=== PATIENT | female | born 1945 | race Caucasian/White ===

== ENCOUNTER → 2019-03-04 15:01 | Outpatient (BNVA) | payer MEDICARE, SELFPAY | PROVIDERS: Family Provider Family Medicine; PCP Family Medicine; Visit Provider Specialist | DX: G31.84 Mild cognitive impairment of uncertain or unknown etiology (principal); F32.9 Major depressive disorder, single episode, unspecified; Z87.891 Personal history of nicotine dependence | CPT/HCPCS: 96116; 99214 ==

== ENCOUNTER → 2019-07-17 10:37 | Outpatient (BNVA) | payer MEDICARE, SELFPAY | PROVIDERS: Family Provider Family Medicine; PCP Family Medicine; Visit Provider Family Medicine | DX: F32.9 Major depressive disorder, single episode, unspecified (principal); I10 Essential (primary) hypertension | CPT/HCPCS: 80048 ==

== ENCOUNTER 2019-08-20 21:03 | Emergency (ER) | payer MEDICARE, SELFPAY ==
[2019-08-20 21:11] VITALS: BP 140/69; PULSE 62; RESP 18; TEMP 36; O2SAT 95; BMI 23.0
--- NOTE | 2019-08-20 21:35 | CTR_ITS ---
PROCEDURE INFORMATION: Exam: CT Thoracic Spine Without Contrast Exam date and time: 08/20/2019 9:38 PM Age: 74 years old Clinical indication: Injury or trauma; Fall; Initial encounter; Blunt trauma (contusions or hematomas) TECHNIQUE: Imaging protocol: Computed tomography images of the thoracic spine without contrast. Radiation optimization: All CT scans at this facility use at least one of these dose optimization techniques: automated exposure control; mA and/or kV adjustment per patient size (includes targeted exams where dose is matched to clinical indication); or iterative reconstruction. COMPARISON: No relevant prior studies available. RADIATION DOSE METRICS: Total DLP (mGy-cm): 678.47 FINDINGS: Vertebrae: T12 vertebral body compression fracture with retropulsion of bony fragments resulting in mild spinal canal narrowing T1-T2: No significant disc protrusion. No severe spinal canal stenosis. No significant neural foraminal narrowing. T2-T3: No significant disc protrusion. No severe spinal canal stenosis. No significant neural foraminal narrowing. T3-T4: No significant disc protrusion. No severe spinal canal stenosis. No significant neural foraminal narrowing. T4-T5: No significant disc protrusion. No severe spinal canal stenosis. No significant neural foraminal narrowing. T5-T6: No significant disc protrusion. No severe spinal canal stenosis. No significant neural foraminal narrowing. T6-T7: No significant disc protrusion. No severe spinal canal stenosis. No significant neural foraminal narrowing. T7-T8: No significant disc protrusion. No severe spinal canal stenosis. No significant neural foraminal narrowing. T8-T9: No significant disc protrusion. No severe spinal canal stenosis. No significant neural foraminal narrowing. T9-T10: No significant disc protrusion. No severe spinal canal stenosis. No significant neural foraminal narrowing. T10-T11: No significant disc protrusion. No severe spinal canal stenosis. No significant neural foraminal narrowing. T11-T12: No significant disc protrusion. No severe spinal canal stenosis. No significant neural foraminal narrowing. T12-L1: No significant disc protrusion. No severe spinal canal stenosis. No significant neural foraminal narrowing. CT/CT thoracic spin wo con* [id number] IMPRESSION: T12 vertebral body compression fracture with retropulsion of bony fragments resulting in mild spinal canal narrowing Radiation Dose CTDIVOL = (mGy): DLP = 678.47 (mGy-cm)
--- NOTE | 2019-08-20 21:35 | CTR_ITS ---
PROCEDURE INFORMATION: Exam: CT Lumbar Spine Without Contrast Exam date and time: 08/20/2019 9:38 PM Age: 74 years old Clinical indication: Injury or trauma; Fall; Initial encounter; Blunt trauma (contusions or hematomas) TECHNIQUE: Imaging protocol: Computed tomography images of the lumbar spine without contrast. Radiation optimization: All CT scans at this facility use at least one of these dose optimization techniques: automated exposure control; mA and/or kV adjustment per patient size (includes targeted exams where dose is matched to clinical indication); or iterative reconstruction. COMPARISON: No relevant prior studies available. RADIATION DOSE METRICS: Total DLP (mGy-cm): 1692.95 FINDINGS: Vertebrae: T12 vertebral body compression fracture with mild retropulsion of bony fragments and mild spinal canal narrowing. L1-L2: No significant disc protrusion. No severe spinal canal stenosis. No significant neural foraminal narrowing. L2-L3: No significant disc protrusion. No spinal canal stenosis. No neural foraminal narrowing. L3-L4: No significant disc protrusion. No severe spinal canal stenosis. No significant neural foraminal narrowing. L4-L5: No significant disc protrusion. No severe spinal canal stenosis. No significant neural foraminal narrowing. L5-S1: No significant disc protrusion. No severe spinal canal stenosis. No significant neural foraminal narrowing. Sacrum/coccyx: Right sacral chronic appearing insufficiency fracture. Stomach and bowel: Diverticulosis without diverticulitis. Soft tissues: Right cyst incompletely visualized. CT/CT lumbar spine wo con* [id number] IMPRESSION: 1. T12 vertebral body compression fracture with mild retropulsion of bony fragments and mild spinal canal narrowing. 2. Diverticulosis without diverticulitis. 3. Right cyst incompletely visualized. 4. Right sacral chronic appearing insufficiency fracture. Radiation Dose CTDIVOL = (mGy): DLP = 1692.95 (mGy-cm)
--- NOTE | 2019-08-20 22:08 | XRR_ITS ---
PROCEDURE INFORMATION: Exam: XR Pelvis Exam date and time: 08/20/2019 10:31 PM Age: 74 years old Clinical indication: Injury or trauma; Fall; Initial encounter; Blunt trauma (contusions or hematomas); Does not apply; Pelvic region; Additional info: Injury, fall, pelvic/back pain TECHNIQUE: Imaging protocol: XR pelvis. Views: 1 or 2 view. COMPARISON: No relevant prior studies available. FINDINGS: Bones/joints: osseous structures of the pelvis without an acute process. rami are intact. Sacroiliac joints without separation/diastases/fracture. Iliac bones unremarkable/noncontributory Degenerative changes within the hips: Mild Degenerative changes within the visualized portions of the caudal aspect of the lumbar spine. Mild degenerative changes about the symphysis. Soft tissues: Unremarkable. XR/XR pelvis 1-2V* [id number] IMPRESSION: No acute process. Degenerative changes.
--- NOTE | 2019-08-20 22:11 | ED_ITS ---
HPI - Fall General: Chief Complaint: Fall Stated Complaint: fall, back pain Time Seen by Provider: 08/20/19 22:04 Source: patient Mode of arrival: ambulatory Limitations: no limitations History of Present Illness: HPI Narrative: 74-year-old female that states she is carrying her dog and fell backwards and landed on her buttocks. Patient states she has had severe lower back pain since then. She has been able to ambulate but states that it is painful. She denies any other injuries at this time. She denies hitting her head. Patient rates pain a 7 out of 10. Denies any extremity pain MD complaint: fall Associated symptoms-after fall: Denies abdominal pain, chest pain, headache(s) o r neck pain Review of Systems Const: Denies: fever(s), chills, body aches or change in appetite Eyes: Denies: blurry vision or eye discomfort ENMT: Denies: throat pain or dental pain Card: Denies: chest pain Resp: Denies: dyspnea GI: Denies: abdominal pain, nausea, vomiting or diarrhea : Denies: dysuria Musc: Reports: back pain; Denies: neck pain Skin/Breast: Denies: rash Neuro: Denies: headache(s) Psych: Denies: depression Rock/Lymph: Denies: easy bruising All/Imm: Denies: urticaria PFSH ED PFSH: Medical History Hx of breast cancer Hypertension Surgical History H/O hysterectomy for benign disease History of cholecystectomy History of mastectomy Social History Smoking and tobacco status: former smoker Alcohol intake: never Physical Exam Const: COMMON NORMALS: no acute distress, patient oriented x3 and healthy appearing HENMT: COMMON NORMALS: normocephalic and atraumatic HEAD & SCALP: normocephalic and atraumatic Eye: COMMON NORMALS: Equal, round and reactive pupils present and EOMs intact bilaterally PUPIL: Yes Equal, round and reactive pupils present Neck/C-Spine: COMMON NORMALS: full ROM and supple Chest: COMMONS NORMALS: normal inspection of the chest and normal palpation of entire chest wall Resp: COMMON NORMALS: normal respiratory effort, No retractions, No use of accessory muscles and clear to auscultation bilaterally AUSCULTATION: clear to auscultation bilaterally Cardio: COMMON NORMALS: regular rate, regular rhythm and No murmurs present (Cardio) RATE: regular rate RHYTHM: regular rhythm GI: COMMON NORMALS: Normal to inspection, nondistended, normoactive bowel sounds present, Soft to palpation, non-tender and no masses PALPATION: Yes Soft to palpation Back/Pelvis: OTHER: Tenderness over low back Extremity: COMMON NORMALS: normal to inspection and full ROM Neuro: COMMON NORMALS: patient oriented x3, moves all extremities and no focal motor deficits Psych: COMMON NORMALS: mental status grossly normal, Normal thought process present and cooperative THOUGHT PROCESS: Normal thought process present Skin: COMMON NORMALS: no rashes or lesions noted and no wounds GENERAL SKIN EXAM: no rashes or lesions noted Course Vital Signs: Vital signs: Vital Signs Temperature 96.8 F L 08/20/19 21:11 Pulse Rate 62 08/20/19 22:42 Respiratory Rate 18 08/20/19 22:42 Blood Pressure 152/74 08/20/19 22:42 Pulse Oximetry 93 08/20/19 22:42 MDM - Fall MDM Narrative: Medical decision making narrative: Patient presents here after a fall and does have a thoracic spine fracture. She has no neurologic deficits and is able to ambulate. Patient placed in a TLSO brace and she is to follow-up with Dr. Fuentes. She has no signs of hip fracture. Patient is stable for discharge is return if worsening. She had no head injury. Imaging Data^: ct t spine: Attestation: I personally reviewed and interpreted this imaging study as fabiana rodriguez: Radiologist's impression: [address] [address] [address] Scan Report Signed Patient: Celestina San Unit #: [id number] : 1945 Age/Sex: 74 / F ADM Date: 08/20/19 Loc: ER Room/Bed: Attending Dr: Ordering Provider/Ordering MD: Jasmyne Beyer MD Date of Service: 08/20/19 Procedure(s): CT thoracic spin wo con* [id number] Accession Number(s): [id number] Report Number: [id number] PROCEDURE INFORMATION: Exam: CT Thoracic Spine Without Contrast Exam date and time: 08/20/2019 9:38 PM Age: 74 years old Clinical indication: Injury or trauma; Fall; Initial encounter; Blunt trauma (contusions or hematomas) TECHNIQUE: Imaging protocol: Computed tomography images of the thoracic spine without contrast. Radiation optimization: All CT scans at this facility use at least one of these dose optimization techniques: automated exposure control; mA and/or kV adjustment per patient size (includes targeted exams where dose is matched to clinical indication); or iterative reconstruction. COMPARISON: No relevant prior studies available. RADIATION DOSE METRICS: Total DLP (mGy-cm): 678.47 FINDINGS: Vertebrae: T12 vertebral body compression fracture with retropulsion of bony fragments resulting in mild spinal canal narrowing T1-T2: No significant disc protrusion. No severe spinal canal stenosis. No significant neural foraminal narrowing. T2-T3: No significant disc protrusion. No severe spinal canal stenosis. No significant neural foraminal narrowing. T3-T4: No significant disc protrusion. No severe spinal canal stenosis. No significant neural foraminal narrowing. T4-T5: No significant disc protrusion. No severe spinal canal stenosis. No significant neural foraminal narrowing. T5-T6: No significant disc protrusion. No severe spinal canal stenosis. No significant neural foraminal narrowing. T6-T7: No significant disc protrusion. No severe spinal canal stenosis. No significant neural foraminal narrowing. T7-T8: No significant disc protrusion. No severe spinal canal stenosis. No significant neural foraminal narrowing. T8-T9: No significant disc protrusion. No severe spinal canal stenosis. No significant neural foraminal narrowing. T9-T10: No significant disc protrusion. No severe spinal canal stenosis. No significant neural foraminal narrowing. T10-T11: No significant disc protrusion. No severe spinal canal stenosis. No significant neural foraminal narrowing. T11-T12: No significant disc protrusion. No severe spinal canal stenosis. No significant neural foraminal narrowing. T12-L1: No significant disc protrusion. No severe spinal canal stenosis. No significant neural foraminal narrowing. CT/CT thoracic spin wo con* [id number] IMPRESSION: T12 vertebral body compression fracture with retropulsion of bony fragments resulting in mild spinal canal narrowing ct l spine: Radiologist's impression: [facility] [address] [place] [address] CT Scan Report Signed Patient: Celestina San Unit #: [id number] : 1945 Age/Sex: 74 / F ADM Date: 08/20/19 Loc: ER Room/Bed: Attending Dr: Ordering Provider/Ordering MD: Jasmyne Beyer MD Date of Service: 08/20/19 Procedure(s): CT lumbar spine wo con* [id number] Accession Number(s): [id number] Report Number: [id number] PROCEDURE INFORMATION: Exam: CT Lumbar Spine Without Contrast Exam date and time: 08/20/2019 9:38 PM Age: 74 years old Clinical indication: Injury or trauma; Fall; Initial encounter; Blunt trauma (contusions or hematomas) TECHNIQUE: Imaging protocol: Computed tomography images of the lumbar spine without contrast. Radiation optimization: All CT scans at this facility use at least one of these dose optimization techniques: automated exposure control; mA and/or kV adjustment per patient size (includes targeted exams where dose is matched to clinical indication); or iterative reconstruction. COMPARISON: No relevant prior studies available. RADIATION DOSE METRICS: Total DLP (mGy-cm): 1692.95 FINDINGS: Vertebrae: T12 vertebral body compression fracture with mild retropulsion of bony fragments and mild spinal canal narrowing. L1-L2: No significant disc protrusion. No severe spinal canal stenosis. No significant neural foraminal narrowing. L2-L3: No significant disc protrusion. No spinal canal stenosis. No neural foraminal narrowing. L3-L4: No significant disc protrusion. No severe spinal canal stenosis. No significant neural foraminal narrowing. L4-L5: No significant disc protrusion. No severe spinal canal stenosis. No significant neural foraminal narrowing. L5-S1: No significant disc protrusion. No severe spinal canal stenosis. No significant neural foraminal narrowing. Sacrum/coccyx: Right sacral chronic appearing insufficiency fracture. Stomach and bowel: Diverticulosis without diverticulitis. Soft tissues: Right cyst incompletely visualized. CT/CT lumbar spine wo con* [id number] IMPRESSION: 1. T12 vertebral body compression fracture with mild retropulsion of bony fragments and mild spinal canal narrowing. 2. Diverticulosis without diverticulitis. 3. Right cyst incompletely visualized. 4. Right sacral chronic appearing insufficiency fracture. Radiation Dose CTDIVOL = (mGy): DLP = 1692.95 ( Discharge Plan Discharge Patient Disposition: Home, Self-Care Clinical Impression: Compression fracture Condition: Stable Prescriptions: [place] 5-325 mg tablet 1 tab PO Q6H PRN (Reason: pain) Qty: 14 RF: 0 ondansetron 4 mg tablet,disintegrating 4 mg PO Q6H PRN (Reason: nausea and vomiting) Qty: 14 RF: 0 No Action vitamin E (dl, acetate) 1,000 unit capsule 1,000 unit PO ONCE RF: 0 ergocalciferol (vitamin D2) [Vitamin D2] 50,000 unit capsule 50,000 unit PO .COMPLEX RF: 0 metoclopramide HCl [Reglan] 5 mg tablet 5 mg PO BID RF: 0 touysdqicdqq-Rd-xlbn-minerals Tablet PO ONCE RF: 0 cyanocobalamin (vitamin B-12) 1,000 mcg capsule 1,000 mcg PO ONCE RF: 0 calcium carb and citrat-mag ox 200 mg calcium- 50 mg tablet PO ONCE RF: 0 aspirin 81 mg tablet,delayed release (DR/EC) 81 mg PO ONCE RF: 0 naproxen sodium 220 mg capsule 220 mg PO ONCE PRNRF: 0 magnesium hydroxide [Milk of Magnesia] 400 mg/5 mL suspension 5 ml PO ONCE RF: 0 memantine [Namenda Titration Christopher] 5-10 mg tablets,dose pack See Rx Instructions PO PER PKG DIR RF: 0 memantine [Namenda] 10 mg tablet 10 mg PO BID RF: 0 bupropion HCl 150 mg tablet sustained-release 12 hr 150 mg PO BID 30 Days Qty: 60 RF: 2 venlafaxine 100 mg tablet 100 mg PO BID 30 Days Qty: 60 RF: 5 metoprolol tartrate 25 mg tablet 25 mg PO BID 90 Days Qty: 180 RF: 1 donepezil [Aricept] 10 mg tablet 10 mg PO DAILY Qty: 90 RF: 1 Discharge Orders: Discharge Order (Routine); Ordered 08/20/19 Ordered By: Jasmyne Beyer Referrals: Tadeo Fuentes MD [Physician] - 1-3 days Sneha Mendoza MD [Primary Care Provider] - Discharge Diet: Advance as tolerated Discharge Activity: Resume usual activity Patient Instructions: Thoracolumbar Fracture (ED) Coding Level of Care Code ED [facility] Fwd Exam Comprehensive
[2019-08-20 22:38] VITALS: RESP 18; O2SAT 96
[2019-08-20] MEDS: ondansetron 2 mg/ML SDV 2 mL 4 MG IVP (22:38)
[2019-08-20] MEDS: morphine 4 mg/mL SDV 1 mL IVP (22:38)
[2019-08-20 22:42] VITALS: BP 152/74; PULSE 62; RESP 18; O2SAT 93
[2019-08-20 23:12] VITALS: BP 161/76; PULSE 64; RESP 18; O2SAT 93
[2019-08-21 00:09] VITALS: RESP 18; O2SAT 95
[2019-08-21] MEDS: morphine 4 mg/mL SDV 1 mL IVP (00:09)
[2019-08-21] MEDS: HYDROcodone-acetaminophen 5-325 mg Tablet 1 TAB PO (00:38)
[2019-08-21 00:39] VITALS: BP 153/70; PULSE 68; RESP 16; O2SAT 92
--- NOTE | 2019-08-21 10:28 | DCPLANNER ---
commercial sales manager had message to schedule a follow up appointment for patient with Dr. Fuentes. commercial sales manager called [facility], spoke with Danielle, gave clinic patients information. commercial sales manager was told that patients information would be printed and reviewed. Clinic will call patient with appointment information.
--- NOTE | 2019-08-22 08:53 | DCPLANNER ---
Luis Angel from Dr. Alaniz office, called [facility] stating that a follow up appointment is scheduled for Tuesday, August 27, 2019 at 9:00 with Nadja. Clinic will call patient with appointment information.
--- NOTE | 2019-08-28 10:58 | DCPLANNER ---
Patient did attend appointment scheduled for 08.27.[address] Fuentes.
== END 2019-08-21 00:44 | disposition home or self-care (01) ==
PROVIDERS: Emergency Provider Emergency Medicine; PCP Family Medicine
DX: S22.080A Wedge compression fracture of T11-T12 vertebra, initial encounter for closed fracture (principal); Z79.82 Long term (current) use of aspirin; I10 Essential (primary) hypertension; Z85.3 Personal history of malignant neoplasm of breast; Z87.891 Personal history of nicotine dependence; W19.XXXA Unspecified fall, initial encounter
CPT/HCPCS: 12345; 72128; 72131; 72170; 96374; 96375; 96376; 99283; J2270; J2405

== ENCOUNTER 2019-09-01 | Outpatient (RCR) | payer MEDICARE, SELFPAY | END 2019-09-01 23:00 | disposition home or self-care (01) | LOC: MPT | PROVIDERS: Family Provider Family Medicine; PCP Family Medicine; Referring Provider Family Medicine; Visit Provider Family Medicine | DX: R41.9 Unspecified symptoms and signs involving cognitive functions and awareness (principal); G30.9 Alzheimer's disease, unspecified; F02.80 Dementia in other diseases classified elsewhere, unspecified severity, without behavioral disturbance, psychotic disturbance, mood disturbance, and anxiety | CPT/HCPCS: 99213; 99214 ==

== ENCOUNTER 2019-09-19 08:42 | Outpatient (CLI) | payer MEDICARE, SELFPAY ==
--- NOTE | 2019-09-19 09:00 | CT_ITS ---
WS: [id number] CT THORACIC SPINE TECHNIQUE: Noncontrast CT of the thoracic spine with coronal and sagittal reformatted images. CLINICAL INFORMATION: Fracture COMPARISON: CT August 20, 2019 DLP: 971.[address] scans at [facility] use at least one of these dose optimization techniques: automat ed exposure control; mA and/or kV adjustment per patient size (includes targeted exams where dose is matched to clinical indication); or iterative reconstruction. FINDINGS: Mild thoracic curve. Mild thoracic kyphosis. Again seen is compression fracture of the T12 vertebral body which is progressed today measuring approximately 50% centrally with biconcave compression. Retr opulsion posterior superior cortex with mild central canal stenosis. Fracture cleft in the superior e ndplate. Mild bilateral foraminal narrowing. Mild bilateral T11-T12 foraminal narrowing. No other significant changes. CT/CT thoracic spin wo con* [id number] IMPRESSION: 1. Again seen is compression fracture T12 vertebral body which is progressed t spike with biconcave compression measuring approximately 50%. 2. Mild retropulsion posterior superior cortex with mild central canal stenosi s has progressed. 3. No other significant changes.
== END 2019-09-19 08:43 | disposition home or self-care (01) ==
LOC: RADWPI 08:46
PROVIDERS: Family Provider Family Medicine; PCP Family Medicine; Visit Provider Licensed Practical Nurse
DX: S22.080A Wedge compression fracture of T11-T12 vertebra, initial encounter for closed fracture (principal); X58.XXXA Exposure to other specified factors, initial encounter
CPT/HCPCS: 72128

== ENCOUNTER 2019-09-24 15:01 | Outpatient (CLI) | payer MEDICARE, SELFPAY ==
--- NOTE | 2019-09-24 15:37 | MR_ITS ---
WS: [id number] MRI LUMBAR SPINE NONCONTRAST HISTORY: AGE RELATED OSTEOPOROSIS, CURRENT PATHOLOGICAL FRACTURE COMPARISON: CT lumbar spine 08/20/2019 TECHNIQUE: Sagittal and axial multisequence imaging is submitted. Moderate increase in thoracic kyphosis. Burst fracture at T12 was described on 08/20/2019. Posterior r etropulsion of the superior endplate by 5.2 mm. Mild contact upon the distal cord at the T12 level. Mild increase in the lumbar lordosis. Mild disc desiccation. No lumbar spine fracture. Conus terminates normally at L1-2 disc level. T11-T12: There is continued increased T2 signal within the T12 burst fracture. Anterior wedging has p rogressed from 16 mm to 6 mm. Retropulsion of the vertebral body has also slightly increased. There i s mild contact of the posterior vertebral body fragment on the conus. No associated marrow edema. Mil d encroachment into the subarticular recesses bilaterally and moderate narrowing of the foramina bila terally. Although incompletely imaged there is abnormal signal in the LEFT pedicle or articular facet of T11 v ertebral body which may represent edema from the fracture of the recent fall. Metastatic lesion is no t excluded with a history of breast cancer. L1-L2: Normal. L2-L3: Mild asymmetric disc bulging to the RIGHT. There is mild bulging disc contact on the L3 RIGHT nerve root in the subarticular recess. Small amount of fluid in the facet joints. L3-L4: Diffuse annular disc bulging and osteophytic ridging. Contact on the L4 nerve roots bilaterall y, slightly greater on the RIGHT. Small amount of fluid in the facet joints. L4-L5: Mild annular disc bulging. Annular fissure in the LEFT foramen. There is mild flattening and c ontact of the nerve roots bilaterally within the subarticular recesses. Small amount of fluid in the facet joints. No stenosis. L5-S1: Mild broad-based disc bulging posteriorly without stenosis. Bilateral renal cysts. MR/MR lumbar spine wo con* [id number] IMPRESSION: 1. Burst fracture T12 with 5.2 mm retropulsion of the vertebral body and mild contact on the conus. Fracture has progressed since 08/20/2019. 2. Moderate bilateral foraminal narrowing at T11-12 and narrowing of the subar ticular recesses due to the burst fracture. 3. No additional lumbar spine fracture. 4. Degenerative disc disease and disc bulging as above. Resulting in multileve l areas of mild subarticular foraminal stenosis. No high-grade stenosis in the lumbar spine. 5. Abnormal signal in the LEFT T11 pedicle or facet joint is incompletely visu alized. May be related to the recent trauma and related to marrow edema. Cannot exclude metastatic lesion. For further evaluation MRI thoracic spine with and without contrast may be helpful. No abnormality was noted on the CT of 0.
--- NOTE | 2019-09-24 15:37 | XR_ITS ---
WS: [id number] DEXA (DUAL ENERGY X-RAY ABSORPTIOMETRY) Bone mineral density was performed using a [employer] machine. HISTORY: AGE RELATED OSTEOPOROSIS, CURRENT PATHOLOGICAL FRACTURE VERT COMPARISON: None available. Lumbar spine BMD (L1-L4): 0.848 g/cm2 T score: -2.8 Z score: -0.7 Total hip BMD: Left: 0.727 g/cm2. T score: -2.2 Z score: -0.3 Right: 0.733 g/cm2. T score: -2.2 Z score: -0.3 10 year probability of a major osteoporotic fracture is 18%. XR/XR DEXA axial skeleton* [id number] IMPRESSION: OSTEOPOROSIS based upon the WHO classification for females.
== END 2019-09-24 15:02 | disposition home or self-care (01) ==
PROVIDERS: Family Provider Family Medicine; PCP Family Medicine; Visit Provider Neurological Surgery
DX: M80.08XA Age-related osteoporosis with current pathological fracture, vertebra(e), initial encounter for fracture; S22.081A Stable burst fracture of T11-T12 vertebra, initial encounter for closed fracture; X58.XXXA Exposure to other specified factors, initial encounter; M48.04 Spinal stenosis, thoracic region; M51.36 Other intervertebral disc degeneration, lumbar region; M51.26 Other intervertebral disc displacement, lumbar region
CPT/HCPCS: 72148; 77080

== ENCOUNTER 2019-10-20 12:48 | Outpatient (CLI) | payer MEDICARE, SELFPAY ==
--- NOTE | 2019-10-20 13:00 | CT_ITS ---
WS: [id number] CT THORACIC SPINE HISTORY: Fracture TECHNIQUE: Contiguous 2.5 mm axial images are reviewed to thoracic spine. Images are reformatted in s agittal and coronal planes. All CT scans at [facility] use at least one of these dose opt imization techniques: automated exposure control; mA and/or kV adjustment per patient size (includes targeted exams where dose is matched to clinical indication); or iterative reconstruction. DLP: 921.08 mGycm COMPARISON: 09/19/2019 Mild increase in thoracic kyphosis. Burst fracture of T12 is reidentified. There is involvement of th e posterior vertebral body with retropulsion by 5.3 mm of the posterior superior vertebral body with encroachment upon the ventral thecal sac and subarticular recesses. There is continued progressive lo ss of height with no change in the retropulsion. Mild deformity of the ventral thecal sac at the T12 level with subarticular recess stenosis. Mild bilateral foraminal narrowing at T11-12 as before. Very mild anterior wedging of T3, T6 and T7. No other interval change. CT/CT thoracic spin wo con* [id number] IMPRESSION: 1. Mild progression of the burst fracture at T12 with 5.3 mm retropulsion of t he posterior superior endplate. 2. Mild central and subarticular recess stenosis at the T12 level due to the f racture. 3. Mild narrowing of the T11-12 foramina.
== END 2019-10-20 12:49 | disposition home or self-care (01) ==
PROVIDERS: Family Provider Family Medicine; PCP Family Medicine; Visit Provider Licensed Practical Nurse
DX: S22.080A Wedge compression fracture of T11-T12 vertebra, initial encounter for closed fracture (principal); X58.XXXA Exposure to other specified factors, initial encounter; M48.04 Spinal stenosis, thoracic region
CPT/HCPCS: 72128

== ENCOUNTER → 2019-10-22 15:36 | Outpatient (BNVA) | payer MEDICARE, SELFPAY | PROVIDERS: Family Provider Family Medicine; PCP Family Medicine; Visit Provider Licensed Practical Nurse | DX: S22.080D Wedge compression fracture of T11-T12 vertebra, subsequent encounter for fracture with routine healing (principal); X58.XXXD Exposure to other specified factors, subsequent encounter | CPT/HCPCS: 99213 ==

== ENCOUNTER 2019-11-24 08:56 | Outpatient (CLI) | payer MEDICARE, SELFPAY ==
--- NOTE | 2019-11-24 09:12 | CT_ITS ---
WS: [id number] CT THORACIC SPINE TECHNIQUE: Noncontrast CT of the thoracic spine with coronal and sagittal reformatted images. CLINICAL INFORMATION: Fracture COMPARISON: CT October 20, 2019 September 19, 2019. DLP: 946.[address] scans at [facility] use at least one of these dose optimization techniques: automat ed exposure control; mA and/or kV adjustment per patient size (includes targeted exams where dose is matched to clinical indication); or iterative reconstruction. FINDINGS: Mild thoracic curve. Mild thoracic kyphosis. Again seen is the compression fracture T12 vertebral bod y. Slight progressive compression since the prior examination measuring approximately 80% centrally w ith biconcave compression. Mild retropulsion of the posterior superior cortex with mild to moderate c entral canal stenosis. Narrowing of the subarticular recess bilaterally. Mild bilateral T11-T12 celena inal narrowing. Mild anterior wedging T3, T6, T7 unchanged. CT/CT thoracic spin wo con* [id number] IMPRESSION: 1. Mild progression of the biconcave compression fracture at T12 with fracture clefts. Loss of approximately 80% vertebral body height centrally. 2. Stable retropulsion posterior superior cortex measuring 5.3 mm unchanged wi th mild to moderate central canal stenosis. 3. Mild bilateral T11 and T12 foraminal narrowing.
== END 2019-11-24 08:57 | disposition home or self-care (01) ==
LOC: CT 09:00 → WPI 09:11
PROVIDERS: Family Provider Family Medicine; PCP Family Medicine; Visit Provider Licensed Practical Nurse
DX: S22.080A Wedge compression fracture of T11-T12 vertebra, initial encounter for closed fracture (principal); X58.XXXA Exposure to other specified factors, initial encounter
CPT/HCPCS: 72128; 99214

== ENCOUNTER 2020-02-25 20:44 | Emergency (ER) | payer MEDICARE, SELFPAY ==
[2020-02-25 20:52] VITALS: BP 145/55; PULSE 73; RESP 16; TEMP 38.1; O2SAT 95; BMI 22.6
[2020-02-25 21:02] VITALS: O2SAT 97
--- NOTE | 2020-02-25 21:14 | XR_ITS ---
WS: [id number] Exam: XR chest 1V portable [id number] Date/Time of Exam: 02/25/2020 9:14 PM Reason For Exam: dyspnea/ covid sx Comparison 04/25/2018. The lungs are fully expanded. No infiltrates. No pleural effusion. Cardiomediastinal structures are u nremarkable. Surgical clips along the left rib cage. The left breast may be surgically absent. XR/XR chest 1V portable [id number] IMPRESSION: 1. No acute cardiopulmonary finding.
--- NOTE | 2020-02-25 21:17 | ECG_ITS ---
[facility] Test Date: 2020-02-25 Pat Name: Celestina San Department: Room: Gender: Female Skin Installer: : 1945 Requested By: Baldo Nolasco Order Number: [id number] Lovell MD: Isatu Carvajal M.D. Measurements Intervals [place] Rate: 68 P: -23 TN: 131 QRS: -28 QRSD: 86 T: 11 QT: 396 QTc: 423 Interpretive Statements SINUS RHYTHM BORDERLINE LEFT AXIS DEVIATION [QRS AXIS < -20] POSSIBLE RIGHT VENTRICULAR CONDUCTION DELAY [RSR (QR) IN V1/V2] Compared to ECG 04/25/2018 19:41:18 Incomplete right bundle-branch block no longer present ST (T wave) deviation no longer present Electronically Signed On 02-26-2020 9:22:23 LAND RECLAMATION SPECIALIST by Isatu Carvajal M.D. [id number]
--- NOTE | 2020-02-25 21:18 | W.ED.COVID ---
HPI - COVID General: Chief Complaint: COVID symptoms Stated Complaint: AMS Time Seen by Provider: 02/25/20 20:58 Triage information: Has fever, cough or shortness of breath. Exposure to COVID + person last 14 days History of Present Illness: HPI Narrative: The patient is a 75-year-old female who comes to the ER complaining of shortness of breath, loss of smell and taste, muscle aches, nausea, and occasional diarrhea for the past 3 days. 10 days ago she sat next to someone at [employer] that was diagnosed as positive yesterday and she is here for testing. Temperature is 100.5 in the ER. She also admits fever chills and sweats at home MD complaint: has COVID symptoms Prior covid testing: no COVID 19 common symptoms: positive fever(s), chills, non-productive cough, dyspnea, fatigue, body aches, headache(s), loss of sense of smell and/or taste, nausea and diarrhea; negative throat pain or nasal congestion COVID 19 other sytmptoms: negative chest pressure, chest pain, requiring oxygen or respiratory distress Severity: mild COVID Results: SARS-CoV-2 Antigen (Rapid) Positive (Negative) H 02/25/20 21:40 02/25/20 Review of Systems General: Reports: 10 or more systems reviewed and unremarkable except in HPI and below Const: Reports: fever(s), chills, body aches and fatigue Eyes: Denies: change in vision, blurry vision or eye redness ENMT: Denies: throat pain, swelling of lips/tongue, ear or mastoid pain or nasal congestion Card: Denies: chest pain, palpitations, irregular heart rhythm, edema, dyspnea on exertion or orthopnea Resp: Reports: dyspnea and non-productive cough GI: Reports: nausea and diarrhea : Denies: flank pain, difficulty voiding, urinary frequency or urinary urgency Musc: Denies: neck pain, back pain, extremity pain, joint pain, joint redness, limited range of motion or muscle weakness Skin/Breast: Denies: rash, pruritus, erythema, skin pain or skin tenderness Neuro: Reports: headache(s) Psych: Denies: anxiety or depression Endo: Denies: polyuria All/Imm: Denies: urticaria, throat swelling or tongue swelling PFSH ED PFSH: Medical History (Updated 11/28/19 @ 11:08 by Snehal Ocasio APRN) Chronic insomnia Compression fracture of T12 vertebra Hx of breast cancer Hypertension Osteoporosis Surgical History H/O hysterectomy for benign disease History of cholecystectomy History of mastectomy Family History Father Cancer Grandmother Diabetes Sister Cancer Mother Aneurysm Social History Smoking and tobacco status: former smoker Alcohol intake: never Household members: spouse Marital status: Current occupational status: retired History of recent travel: No Physical Exam Narrative: EXAM NARRATIVE: febrile. Const: COMMON NORMALS: no acute distress, average body habitus, patient oriented x3, no limitations, healthy appearing, alert and well nourished GENERAL APPEARANCE: cooperative, comfortable, well kempt and well developed ORIENTATION/CONSCIOUSNESS: Yes awake, Yes oriented to person, Yes oriented to place and Yes oriented to time HENMT: COMMON NORMALS: normocephalic, external ears normal and Normal external nose present HEAD & SCALP: normal to inspection and normocephalic NOSE: Normal external nose present EXTERNAL EAR: Yes external ears normal MOUTH: Normal oral and palatal mucosa present THROAT: posterior oropharynx normal Eye: COMMON NORMALS: Equal, round and reactive pupils present and EOMs intact bilaterally GENERAL EYE: appearance normal, both eyes and all related structures PUPIL: Yes Equal, round and reactive pupils present Neck/C-Spine: COMMON NORMALS: full ROM, no lymphadenopathy, no meningeal signs and no JVD GENERAL: Yes normal visual inspection Lymph: LYMPHATIC: no lymphadenopathy noted Chest: COMMONS NORMALS: normal inspection of the chest and normal palpation of entire chest wall Resp: COMMON NORMALS: normal respiratory effort, No retractions, No use of accessory muscles, clear to auscultation bilaterally and percussion normal EFFORT & INSPECTION: Yes able to speak in complete sentences AUSCULTATION: clear to auscultation bilaterally PERCUSSION: percussion normal Cardio: COMMON NORMALS: no JVD, regular rate, regular rhythm, S1 normal heart sound present, S2 normal heart sound present and Peripheral pulses 2+ throughout RATE: regular rate RHYTHM: regular rhythm HEART SOUNDS: S1 normal heart sound present and S2 normal heart sound present PERIPHERAL PULSES: Peripheral pulses 2+ throughout GI: COMMON NORMALS: Normal to inspection, nondistended, normoactive bowel sounds present, Soft to palpation, non-tender and no masses INSPECTION: Yes normal to inspection PALPATION: Yes Soft to palpation : COMMON NORMALS: Yes no CVA tenderness BLADDER/KIDNEY EXAM: Yes no CVA tenderness Back/Pelvis: COMMON NORMALS: no CVA tenderness, thoracic and lumbar spine normal to inspection, no thoracic nor lumbar tenderness and thoraco-lumbar ROM normal Extremity: COMMON NORMALS: normal to inspection, full ROM, capillary refill normal, no joint enlargement and no pedal edema GENERAL: Yes normal exam except as noted Neuro: COMMON NORMALS: patient oriented x3, CN's II-XII intact bilaterally, moves all extremities, no focal motor deficits, no sensory deficits noted and gait normal SENSORIUM/ORIENTATION: Yes alert, Yes oriented to person, Yes oriented to place and Yes oriented to time MENINGEAL SIGNS: Yes no meningeal signs Psych: COMMON NORMALS: mental status grossly normal, Normal thought process present, cooperative, normal affect and speech normal APPEARANCE: Yes well kempt ATTITUDE: Yes calm SPEECH: Yes normal speech THOUGHT PROCESS: Normal thought process present Skin: COMMON NORMALS: no rashes or lesions noted GENERAL SKIN EXAM: no rashes or lesions noted Course Vital Signs: Vital signs: Vital Signs Temperature 98.9 F 02/26/20 03:00 Pulse Rate 74 02/26/20 03:01 Respiratory Rate 18 02/26/20 03:01 Blood Pressure 126/66 02/26/20 03:01 Pulse Oximetry 96 02/26/20 03:01 MDM - COVID MDM Narrative: Medical decision making narrative: The patient came to the ER with Covid symptoms and known exposure to a Covid patient. She swabs positive for Covid. She was given Tylenol, IV fluids and her fever reduced. She will will be given BAM infusion and discharged after. She is alert and oriented x4 and denies significant weakness. She says she is eating and drinking well, and can take care of herself at home. She is alert and oriented x4 Lab Data: Labs: Lab Results 02/25/20 02/25/20 02/25/20 Range/Units 21:05 21:05 21:05 WBC 6.2 (4.0-10.0) 10^3/ uL RBC 3.78 L (4.1-5.3) 10^6/u L Hgb 11.5 (11.5-15.3) g/dL Hct 35.5 L (37.0-47.0) % MCV 93.9 (81-99) fL MCH 30.4 (28.0-34.0) pg MCHC 32.4 (30.0-36.0) g/dL RDW 13.4 (12.1-15.1) % Plt Count 175 (130-400) 10^3/c mm MPV 11.7 H (7.4-10.4) fL Neut % (Auto) 77.7 % Lymph % (Auto) 10.9 % Evangeline % (Auto) 10.1 % Eos % (Auto) 0.0 % Baso % (Auto) 0.2 % Neut # (Auto) 4.85 (1.8-7.7) 10^3/u L Lymph # (Auto) 0.7 L (0.8-4.8) 10^3/u L Evangeline # (Auto) 0.6 (0.2-0.9) 10^3/u L Eos # (Auto) 0.0 (0.0-0.8) 10^3/u L Baso # (Auto) 0.0 (0.0-0.1) 10^3/u L Nucleated RBC % (a uto) 0 % Nucleated RBCs # 0.0 /100WBC Sodium 134 L (136-145) mmol/L Potassium 4.8 (3.5-5.1) mmol/L Chloride 95 L (98-107) mmol/L Carbon Dioxide 30 H (22-29) mmol/L Anion Gap 13.8 (5-19) BUN 39 H (8-23) mg/dL Creatinine 1.1 H (0.5-0.9) mg/dL GFR Calculation Not Reportable Glucose 96 (65-115) mg/dL Calculated Osmolal ity 287 (285-295) mOsm/k g Lactate (0.5-2.2) mmol/L Calcium 8.8 (8.5-10.5) mg/dL Total Bilirubin 0.2 (0.15-1.2) mg/dL AST 26 (0-32) U/L ALT 22 (0-33) U/L Alkaline Phosphata se 80 (35-105) IU/L Troponin T Baselin e 20 H (0-10) ng/L Total Protein 6.5 L (6.6-8.7) g/dL Albumin 3.9 (3.5-5.2) g/dL Globulin 2.6 (1.3-4.6) g/dL Urine Color (Yellow) Urine Appearance (CLEAR) Urine pH (5-7) Ur Specific Gravit y (1.005-1.030) Urine Protein (Negative) Urine Glucose (UA) (Normal) Urine Ketones (Negative) Urine Blood (Negative) Urine Nitrate (Negative) Urine Bilirubin (Negative) Urine Urobilinogen (Negative) mg/dL Ur Leukocyte Christi ase (Negative) SARS-CoV-2 Ag (Rap id) (Negative) 02/25/20 02/25/20 02/26/20 Range/Units 21:40 22:30 01:40 WBC (4.0-10.0) 10^3/ uL RBC (4.1-5.3) 10^6/u L Hgb (11.5-15.3) g/dL Hct (37.0-47.0) % MCV (81-99) fL MCH (28.0-34.0) pg MCHC (30.0-36.0) g/dL RDW (12.1-15.1) % Plt Count (130-400) 10^3/c mm MPV (7.4-10.4) fL Neut % (Auto) % Lymph % (Auto) % Evangeline % (Auto) % Eos % (Auto) % Baso % (Auto) % Neut # (Auto) (1.8-7.7) 10^3/u L Lymph # (Auto) (0.8-4.8) 10^3/u L Evangeline # (Auto) (0.2-0.9) 10^3/u L Eos # (Auto) (0.0-0.8) 10^3/u L Baso # (Auto) (0.0-0.1) 10^3/u L Nucleated RBC % (a uto) % Nucleated RBCs # /100WBC Sodium (136-145) mmol/L Potassium (3.5-5.1) mmol/L Chloride (98-107) mmol/L Carbon Dioxide (22-29) mmol/L Anion Gap (5-19) BUN (8-23) mg/dL Creatinine (0.5-0.9) mg/dL GFR Calculation Glucose (65-115) mg/dL Calculated Osmolal ity (285-295) mOsm/k g Lactate 0.7 (0.5-2.2) mmol/L Calcium (8.5-10.5) mg/dL Total Bilirubin (0.15-1.2) mg/dL AST (0-32) U/L ALT (0-33) U/L Alkaline Phosphata se (35-105) IU/L Troponin T Baselin e (0-10) ng/L Total Protein (6.6-8.7) g/dL Albumin (3.5-5.2) g/dL Globulin (1.3-4.6) g/dL Urine Color Yellow (Yellow) Urine Appearance Clear (CLEAR) Urine pH 6.0 (5-7) Ur Specific Gravit y 1.005 (1.005-1.030) Urine Protein Neg (Negative) Urine Glucose (UA) Norm (Normal) Urine Ketones Negative (Negative) Urine Blood Neg (Negative) Urine Nitrate Negative (Negative) Urine Bilirubin Neg (Negative) Urine Urobilinogen Norm (Negative) mg/dL Ur Leukocyte Christi ase Negative (Negative) SARS-CoV-2 Ag (Rap id) Positive H (Negative) COVID Results: SARS-CoV-2 Antigen (Rapid) Positive (Negative) H 02/25/20 21:40 02/25/20 Discharge Plan Discharge Patient Disposition: Home Condition: Stable Prescriptions: New Medrol (Christopher) 4 mg tablets,dose pack See Rx Instructions PO .COMPLEX Qty: 21 RF: 0 No Action Mclean 5-325 mg tablet 1 tab PO Q8H PRN (Reason: pain) 7 Days Qty: 21 RF: 0 vitamin E (dl, acetate) 1,000 unit capsule 1,000 unit PO ONCE RF: 0 ergocalciferol (vitamin D2) [Vitamin D2] 50,000 unit capsule 50,000 unit PO .COMPLEX RF: 0 ktlujrocxmqs-Fr-oqyp-minerals Tablet PO ONCE RF: 0 cyanocobalamin (vitamin B-12) 1,000 mcg capsule 1,000 mcg PO ONCE RF: 0 calcium carb and citrat-mag ox 200 mg calcium- 50 mg tablet PO ONCE RF: 0 aspirin 81 mg tablet,delayed release (DR/EC) 81 mg PO ONCE RF: 0 magnesium hydroxide [Milk of Magnesia] 400 mg/5 mL suspension 5 ml PO ONCE RF: 0 vitamins A,C,Z-cwza-qawbpk 7,160-113-100 lfux-fa-lgew tablet 2 tab PO BID RF: 0 ibuprofen [IBU-200] 200 mg tablet 200 mg PO Q6H PRNRF: 0 memantine [Namenda] 10 mg tablet 10 mg PO BID Qty: 180 RF: 1 donepezil [Aricept] 10 mg tablet 10 mg PO DAILY Qty: 90 RF: 1 metoclopramide HCl [Reglan] 5 mg tablet 5 mg PO BID Qty: 60 RF: 2 ondansetron 4 mg tablet,disintegrating 4 mg PO Q6H PRN (Reason: nausea and vomiting) Qty: 14 RF: 0 Discharge Orders: Discharge ED (Routine); Ordered 02/25/20 Ordered By: Baldo Nolasco Referrals: Sneha Mendoza MD [Primary Care Provider] - Discharge Diet: Advance as tolerated Discharge Activity: Resume usual activity Patient Instructions: Upper Respiratory Infection (ED) Activity Restrictions/Additional Instructions: You have tested positive for coronavirus. Please take the azithromycin and steroid pack as directed and return to the ER if your symptoms should worsen. Follow-up with your primary care physician in a few days to monitor improvement of your symptoms. It is recommended that you self quarantine at home avoid contact with others. Wash hands frequently and wear a mask if possible at home to prevent the spread of it in the air. Coding Level of Care Code ED Bulk Plant Supervisor for Bernabe Fwd Exam Comprehensive
[2020-02-25 21:27] LABS: Basophils % 0.2 %; Hematocrit 35.5 % (37.0-47.0); Hemoglobin 11.5 g/dL (11.5-15.3); Lymphocytes # 0.7 10^3/uL (0.8-4.8); Lymphocytes % 10.9 %; Mean Corpuscular HGB Conc 32.4 g/dL (30.0-36.0); Mean Corpuscular Hemoglobin 30.4 pg (28.0-34.0); Mean Corpuscular Volume 93.9 fL (81-99); Mean Platelet Volume 11.7 fL (7.4-10.4); Monocytes # 0.6 10^3/uL (0.2-0.9); Monocytes % 10.1 %; Neutrophils # 4.85 10^3/uL (1.8-7.7); Neutrophils % 77.7 %; Nucleated Red Blood Cells % 0 %; Platelet Count 175 10^3/cmm (130-400); Red Blood Count 3.78 10^6/uL (4.1-5.3); Red Cell Distribution Width 13.4 % (12.1-15.1); White Blood Count 6.2 10^3/uL (4.0-10.0)
[2020-02-25 21:38] LABS: Alanine Aminotransferase 22 U/L (0-33); Albumin Level 3.9 g/dL (3.5-5.2); Alkaline Phosphatase 80 IU/L (35-105); Anion Gap 13.8 (5-19); Aspartate Amino Transferase 26 U/L (0-32); Blood Urea Nitrogen 39 mg/dL (8-23); Calcium 8.8 mg/dL (8.5-10.5); Carbon Dioxide 30 mmol/L (22-29); Chloride 95 mmol/L (98-107); Globulin 2.6 g/dL (1.3-4.6); Glucose 96 mg/dL (65-115); Osmolality Calculated 287 mOsm/kg (285-295); Potassium 4.8 mmol/L (3.5-5.1); Sodium 134 mmol/L (136-145); Total Bilirubin 0.2 mg/dL (0.15-1.2); Total Protein 6.5 g/dL (6.6-8.7)
[2020-02-25 21:41] LABS: Troponin(5th) Baseline 20 ng/L (0-10)
[2020-02-25] MEDS: sodium chloride 0.9% 1,000 ML 999 ML IV (22:14)
[2020-02-25] MEDS: acetaminophen 500 mg Tablet 1000 MG PO (22:15)
[2020-02-25] MEDS: ondansetron 2 mg/ML SDV 2 mL 4 MG IVP (22:15)
[2020-02-25 22:38] LABS: SARS Covid-2 Antigen Positive (Negative)
[2020-02-25 22:51] LABS: Lactate (Lactic Acid level) 0.7 mmol/L (0.5-2.2)
--- NOTE | 2020-02-25 23:11 | PC.NURSE ---
Per Dr Nolasco, pt's daughter has concerns with pt's mental status and ability to care for elderly spouse with severe COPD. Pt's daughter wishes to speak with pt prior to BAM adm. Pt shows no sign of AMS, able to answer questions correctly
[2020-02-25 23:57] VITALS: BP 124/57; RESP 20; O2SAT 96
[2020-02-26] VITALS (8 sets, daily range): BP systolic 116–127; BP diastolic 56–66; PULSE 61–74; RESP 18–23; TEMP 37.2; O2SAT 95–96
[2020-02-26 01:57] LABS: Add Urine Microscopic? NO
[2020-02-26 02:22] LABS: Bilirubin Urine Neg (Negative); Blood Urine Neg (Negative); Glucose Urine UA Norm (Normal); Ketones Urine Negative (Negative); Leukocyte Esterase Urine Negative (Negative); Nitrate Urine Negative (Negative); Protein Urine Neg (Negative); Specific Gravity, Urine 1.005 (1.005-1.030); Urine Appearance Clear (CLEAR); Urine Color Yellow (Yellow); Urobilinogen Urine Norm (Negative)
[2020-02-26] MEDS: azithromycin 250 mg Tablet 500 MG PO (03:00)
[2020-02-26] MEDS: dexamethasone 4 mg/mL INJ 10 MG IVP (03:00)
--- NOTE | 2020-02-26 04:12 | PC.NURSE ---
i have reviewed this chart
== END 2020-02-26 04:13 | disposition home or self-care (01) ==
PROVIDERS: Emergency Provider Family Medicine; PCP Family Medicine
DX: U07.1 COVID-19 (principal); Z79.82 Long term (current) use of aspirin; Z85.3 Personal history of malignant neoplasm of breast; I10 Essential (primary) hypertension; Z87.891 Personal history of nicotine dependence
CPT/HCPCS: 12345; 36415; 71045; 80053; 81003; 83605; 84484; 85025; 87426; 93005; 96365; 96375; 99283; 99284; J1100; J2405; J7030; J7050; Q0144

== ENCOUNTER → 2020-03-10 11:47 | Outpatient (BNVA) | payer MEDICARE, SELFPAY | PROVIDERS: PCP Family Medicine; Visit Provider Specialist | DX: G30.1 Alzheimer's disease with late onset (principal); F02.80 Dementia in other diseases classified elsewhere, unspecified severity, without behavioral disturbance, psychotic disturbance, mood disturbance, and anxiety; F33.1 Major depressive disorder, recurrent, moderate; Z87.891 Personal history of nicotine dependence | CPT/HCPCS: 99213; 99214 ==

== ENCOUNTER → 2020-06-24 15:52 | Outpatient (BNVA) | payer MEDICARE, SELFPAY | PROVIDERS: PCP Family Medicine; Visit Provider Family Medicine | DX: K29.70 Gastritis, unspecified, without bleeding (principal); R11.0 Nausea; K59.00 Constipation, unspecified; K29.00 Acute gastritis without bleeding; K59.04 Chronic idiopathic constipation | CPT/HCPCS: 80053; 83690; 85025 ==

== ENCOUNTER → 2020-08-06 10:07 | Outpatient (BNVA) | payer MEDICARE, SELFPAY | PROVIDERS: PCP Family Medicine; Visit Provider Surgery | DX: Z20.822 Contact with and (suspected) exposure to COVID-19 (principal) | CPT/HCPCS: 87635 ==

== ENCOUNTER 2020-08-11 08:01 | Day surgery (SDC) | payer MEDICARE, SELFPAY ==
--- NOTE | 2020-08-11 08:20 | ANES.PREANE2 ---
Pre-Anesthetic Assessment Pre-Anesthetic Assessment: Height/Weight: Height 1.55 m Weight 55.338 kg Proposed Procedure: Operation Date: 08/11/20 09:30 Proposed Procedures p EGD [id number] r10.9 k59.04 k29.00(Not Applicable) - James Herrera MD s Colonoscopy(Not Applicable) - James Herrera MD Was Beta Dulce Maria taken within 24 hours: N/A Social: Social History: No alcohol and No tobacco Exam: Pre-Anes Outpt Exam: alert, oriented x 3, clear to auscultation bilaterally and regular rate & rhythm Airway: Submandibular: WNL Cervical ROM: WNL MP: 2 Dentition: False CV/HEM: CV/HEM: HTN GI: GI: GERD Neuropsych: Neuropsych: Dementia and Depression Comments: Alzheimer's Anesthetic Plan: ASA status: 3 Anesthesia: MAC Risk of > 500 ml blood loss (7ml/kg in children): No PFSH Anesthesia PFSH: Medical History Chronic insomnia Compression fracture of T12 vertebra Constipation Hx of breast cancer Hypertension Osteoporosis Surgical History H/O hysterectomy for benign disease History of cholecystectomy History of mastectomy Family History Father Cancer Grandmother Diabetes Sister Cancer Mother Aneurysm Social History Smoking and tobacco status: former smoker Alcohol intake: never Household members: spouse Marital status: Current occupational status: retired History of recent travel: No Female Reproductive History: Spontaneous abortions: No Data Anesthesia Cardiac Studies: No Data to Display
[2020-08-11 08:35] VITALS: BP 133/63; PULSE 65; RESP 18; TEMP 36.2; O2SAT 100
[2020-08-11] MEDS: sodium chloride 0.9% 1,000 ML 30 ML IV (08:56)
--- NOTE | 2020-08-11 10:13 | W.PM.OPSUD ---
Surgery/Procedure H&P Update DATE OF PROCEDURE: August 11, 2020 DATE H&P PERFORMED: 07/15/20 H&P UPDATE INFORMATION: I have reviewed H&P completed within last 30 days, I have examined patient prior to procedure and No changes to prior documentation PREOP DIAGNOSIS: ABDOMINAL PAIN PRIMARY INDICATION FOR PROCEDURE: The same PLANNED PROCEDURE: Operation Date: 08/11/20 09:30 Proposed Procedures p EGD [id number] r10.9 k59.04 k29.00(Not Applicable) - James Herrera MD s Colonoscopy(Not Applicable) - James Herrera MD
[2020-08-11 10:45] VITALS: BP 100/78; PULSE 67; RESP 18; TEMP 36.8; O2SAT 99
[2020-08-11 11:00] VITALS: BP 110/43; PULSE 66; RESP 16; TEMP 36.7; O2SAT 98
--- NOTE | 2020-08-11 13:58 | ANE.PACU2 ---
Inpatient post-anesthesia follow up: Airway intact: Yes Vital signs: Temperature 98.0 F Pulse Rate 66 Respiratory Rate 16 Blood Pressure 110/43 Pulse Oximetry 98 Oxygen Delivery Me thod Room Air Oxygen Flow Rate Fraction of Inspir ed Oxygen Hydration adequate: Yes Nausea and vomiting: No Pain level: 1 Mental status: Baseline
[2020-08-12 06:30] LABS: H. Pylori / CLO Test Negative
== END 2020-08-11 11:25 | disposition home or self-care (01) ==
PROVIDERS: PCP Family Medicine; Visit Provider Surgery
PROC: 0DJ08ZZ Inspection of Upper Intestinal Tract, Via Natural or Artificial Opening Endoscopic (ICD-10-PCS; CPT 43235; principal; 2020-08-11 09:30)
PROC: 0DJD8ZZ Inspection of Lower Intestinal Tract, Via Natural or Artificial Opening Endoscopic (ICD-10-PCS; CPT 45378; 2020-08-11 09:30)
DX: R10.9 Unspecified abdominal pain (principal); K57.30 Diverticulosis of large intestine without perforation or abscess without bleeding; K44.9 Diaphragmatic hernia without obstruction or gangrene; K29.70 Gastritis, unspecified, without bleeding; K29.80 Duodenitis without bleeding; I10 Essential (primary) hypertension; K21.9 Gastro-esophageal reflux disease without esophagitis; F03.90 Unspecified dementia, unspecified severity, without behavioral disturbance, psychotic disturbance, mood disturbance, and anxiety; F02.80 Dementia in other diseases classified elsewhere, unspecified severity, without behavioral disturbance, psychotic disturbance, mood disturbance, and anxiety; M81.0 Age-related osteoporosis without current pathological fracture; Z85.3 Personal history of malignant neoplasm of breast; Z87.891 Personal history of nicotine dependence
CPT/HCPCS: 43239; 45378; 87077; 96360; 96361; J2704; J7030

== ENCOUNTER 2020-12-17 09:23 | Outpatient (CLI) | payer MEDICARE, SELFPAY ==
--- NOTE | 2020-12-17 10:00 | NM_ITS ---
WS: [id number] NUCLEAR MEDICINE GASTRIC STUDY CLINICAL INFORMATION: K29.00 - Acute gastritis without bleeding TECHNIQUE: Following oral ingestion of cooked egg mixed with 1.09 mCi technetium 99m sulfur colloid, anterior images of the stomach were obtained over the course of 90 minutes. Activity curve was perfor med over the course of 90 minutes with linear regression analysis. COMPARISON: None. FINDINGS: Oral ingestion of sulfur colloid egg mixture. Only 44% gastric emptying at 120 minutes Gastric emptying at 1 hour only 22% Calculated T1/2 144 minutes MN/[place] [id number] IMPRESSION: Findings compatible with significantly delayed gastric emptying. *Normal median T1 half 90 minutes for solid egg meal (45-110 minutes). Delayed gastric retention is defined as 90% retained at 1 hour, 60% at 2 hour s, 30% at 3 hours, and 10% at 4 hours (normal percent gastric retention is 37-9 0% at 1 hour, 30-60% at 2 hours, and 0-10% at 4 hours).
== END 2020-12-17 09:24 | disposition home or self-care (01) ==
LOC: RAD 09:32
PROVIDERS: PCP Family Medicine; Visit Provider Surgery
DX: K29.00 Acute gastritis without bleeding (principal)
CPT/HCPCS: 78264; A9541

== ENCOUNTER → 2021-05-04 09:29 | Outpatient (BNVA) | payer MEDICARE, SELFPAY | PROVIDERS: PCP Family Medicine; Visit Provider Family Medicine | DX: R10.9 Unspecified abdominal pain | CPT/HCPCS: 80053; 83690; 85025 ==

== ENCOUNTER 2021-06-15 09:55 | Outpatient (CLI) | payer MEDICARE, SELFPAY ==
--- NOTE | 2021-06-15 10:00 | CT_ITS ---
WS: [id number] CT ABDOMEN TECHNIQUE: Noncontrast CT of the abdomen with coronal and sagittal reformatted images. CLINICAL INFORMATION: R10.13 - Epigastric pain COMPARISON: None. DLP: 372.[address] scans at [facility] use at least one of these dose optimization techniques: automated e xposure control; mA and/or kV adjustment per patient size (includes targeted exams where dose is matc hed to clinical indication); or iterative reconstruction. FINDINGS: Lung bases are well aerated. Cholecystectomy clips. Normal GE junction. Splenic granulomas. Noncontra st pancreas appears normal. RIGHT anterior renal cyst measuring 2.0 cm. No hydronephrosis in either k idney. Tiny fat-containing umbilical hernia. Aortic calcification. Normal visualized abdominal aorta. Chronic compression fracture T12 with 80-90% loss vertebral body height in the mid and anterior aspec t with preservation of the posterior cortex. Posterior cortex is preserved with mild retropulsion. Mi ld to moderate central canal stenosis at T12. Compression fracture has matured since November 23. CT/CT abdomen wo con [id number] IMPRESSION: 1. Prior cholecystectomy. 2. RIGHT renal cyst measuring 2.0 cm. 3. No hydronephrosis in either kidney. 4. Tiny fat-containing umbilical hernia. 5. Chronic compression fracture T12 vertebral body with retropulsion posterior superior cortex with mild to moderate central canal stenosis unchanged. 6. No other significant findings.
== END 2021-06-15 09:56 | disposition home or self-care (01) ==
PROVIDERS: PCP Family Medicine; Visit Provider Family Medicine
DX: R10.13 Epigastric pain (principal); Z90.49 Acquired absence of other specified parts of digestive tract; N28.1 Cyst of kidney, acquired; M48.54XA Collapsed vertebra, not elsewhere classified, thoracic region, initial encounter for fracture
CPT/HCPCS: 74150

== ENCOUNTER → 2021-11-30 14:36 | Outpatient (BNVA) | payer MEDICARE, SELFPAY | PROVIDERS: PCP Family Medicine; Visit Provider Nurse Practitioner Family | DX: M19.90 Unspecified osteoarthritis, unspecified site (principal) | CPT/HCPCS: 85651; 86140; 86160; 86162; 86235; 86255; 86376 ==

== ENCOUNTER → 2022-07-21 08:32 | Outpatient (BNVA) | payer MEDICARE, SELFPAY | PROVIDERS: PCP Family Medicine; Visit Provider Podiatrist Foot & Ankle Surgery | DX: M20.11 Hallux valgus (acquired), right foot (principal); M20.12 Hallux valgus (acquired), left foot; M20.41 Other hammer toe(s) (acquired), right foot; M20.42 Other hammer toe(s) (acquired), left foot; L84 Corns and callosities | CPT/HCPCS: 11055; 73630; 99203 ==

== ENCOUNTER → 2022-07-25 09:58 | Outpatient (BNVA) | payer MEDICARE, SELFPAY | PROVIDERS: PCP Family Medicine; Visit Provider Nurse Practitioner | DX: M81.0 Age-related osteoporosis without current pathological fracture (principal) | CPT/HCPCS: 82040; 82310 ==

== ENCOUNTER → 2022-09-18 15:26 | Outpatient (BNVA) | payer MEDICARE, SELFPAY | PROVIDERS: PCP Family Medicine; Visit Provider Internal Medicine | DX: D47.2 Monoclonal gammopathy (principal); D64.9 Anemia, unspecified; I10 Essential (primary) hypertension | CPT/HCPCS: 80053; 80061; 82232; 82728; 82784; 83010; 83550; 83615; 83883; 84155; 84165; 84550; 85025; 85045; 86146 ==

== ENCOUNTER → 2022-09-19 15:26 | Outpatient (BNVA) | payer MEDICARE, SELFPAY | PROVIDERS: PCP Family Medicine; Visit Provider Internal Medicine | DX: Z01.89 Encounter for other specified special examinations (principal) | CPT/HCPCS: 84155; 84165 ==

== ENCOUNTER → 2022-09-25 14:12 | Outpatient (BNVA) | payer MEDICARE, SELFPAY | PROVIDERS: PCP Family Medicine; Visit Provider Internal Medicine | DX: D64.9 Anemia, unspecified (principal) | CPT/HCPCS: 84156; 84166 ==

== ENCOUNTER 2022-10-14 16:20 | Emergency (ER) | payer MEDICARE, SELFPAY ==
[2022-10-14 16:48] VITALS: BP 137/70; PULSE 61; RESP 18; TEMP 36.9; O2SAT 97; BMI 20.8
[2022-10-14 17:47] LABS: Add Urine Microscopic? NO; Charge for UA Resulting for Rev
[2022-10-14 17:55] LABS: Urine Appearance Clear (CLEAR); Urine Color Dark Yellow (Yellow); pH Urine 7 (5-7)
[2022-10-14 17:56] LABS: Bilirubin Urine Neg (Negative); Blood Urine Neg (Negative); Glucose Urine UA Norm (Normal); Ketones Urine Negative (Negative); Leukocyte Esterase Urine Negative (Negative); Nitrate Urine Negative (Negative); Protein Urine Neg (Negative); Urobilinogen Urine Norm (Negative)
[2022-10-14 18:25] VITALS: BP 155/60; PULSE 65; RESP 16; O2SAT 96
[2022-10-14 18:25] LABS: Alanine Aminotransferase 18 U/L (0-33); Albumin Level 4.2 g/dL (3.5-5.2); Alkaline Phosphatase 54 U/L (35-105); Anion Gap 13.6 (5-19); Aspartate Amino Transferase 19 U/L (0-32); Blood Urea Nitrogen 33 mg/dL (8-23); Calcium 9.8 mg/dL (8.5-10.5); Carbon Dioxide 33 mmol/L (22-29); Chloride 99 mmol/L (98-107); Globulin 2.7 g/dL (1.3-4.6); Glucose 104 mg/dL (65-115); Osmolality Calculated 300 mOsm/kg (285-295); Potassium 4.6 mmol/L (3.5-5.1); Sodium 141 mmol/L (136-145); Total Bilirubin 0.2 mg/dL (0.15-1.2); Total Protein 6.9 g/dL (6.6-8.7)
[2022-10-14 18:30] VITALS: BP 142/68; PULSE 62; O2SAT 98
--- NOTE | 2022-10-14 19:06 | CTR_ITS ---
PROCEDURE INFORMATION: Exam: CT Head Without Contrast Exam date and time: 10/14/2022 7:33 PM Age: 77 years old Clinical indication: Injury or trauma; Blunt trauma (contusions or hematomas); Patient HX: Fall yesterday with head strike. ; Additional info: Fall yesterday, head injury TECHNIQUE: Imaging protocol: Computed tomography of the head without contrast. Radiation optimization: All CT scans at this facility use at least one of these dose optimization techniques: automated exposure control; mA and/or kV adjustment per patient size (includes targeted exams where dose is matched to clinical indication); or iterative reconstruction. REPORTING DATA: Count of CT and Cardiac NM exams in prior 12 months: This patient has received 0 known CTs and 0 known cardiac nuclear medicine studies in the 12 months prior to the current study. COMPARISON: CT head wo contrast 04/25/2018 7:18 PM RADIATION DOSE METRICS: Total DLP (mGy-cm): 279 FINDINGS: Brain: No acute intracranial hemorrhage, acute large territory infarct, or obvious mass lesion. Age appropriate diffuse cerebral volume loss. Mild chronic white matter changes, likely to be chronic small vessel ischemic changes. Cerebral ventricles: No ventriculomegaly. Paranasal sinuses: Visualized sinuses are unremarkable. No fluid levels. Mastoid air cells: Visualized mastoid air cells are well aerated. Bones/joints: Unremarkable. No acute fracture. Soft tissues: Unremarkable. CT/CT head wo con* [id number] IMPRESSION: No acute intracranial abnormality.
--- NOTE | 2022-10-14 19:06 | CTR_ITS ---
PROCEDURE INFORMATION: Exam: CT Abdomen And Pelvis With Contrast Exam date and time: 10/14/2022 7:37 PM Age: 77 years old Clinical indication: Abdominal pain; Prior surgery; Surgery date: 6+ months; Surgery type: Mastectomy. Gb. Hysterectomy. Patient HX: Epigastric pain with loss of appetite. ; Additional info: Epigastric abdominal pain TECHNIQUE: Imaging protocol: Computed tomography of the abdomen and pelvis with contrast. Radiation optimization: All CT scans at this facility use at least one of these dose optimization techniques: automated exposure control; mA and/or kV adjustment per patient size (includes targeted exams where dose is matched to clinical indication); or iterative reconstruction. Contrast material: OMNI 350; Contrast volume: 75 ml; Contrast route: INTRAVENOUS (IV); REPORTING DATA: Count of CT and Cardiac NM exams in prior 12 months: This patient has received 0 known CTs and 0 known cardiac nuclear medicine studies in the 12 months prior to the current study. COMPARISON: CT abdomen wo con [id number] 06/15/2021 10:28 AM RADIATION DOSE METRICS: Total DLP (mGy-cm): 312.45 FINDINGS: Liver: Normal. No mass. Gallbladder and bile ducts: Cholecystectomy. Pancreas: Cystic or mucinous lesion at pancreatic tail measuring 1.6 cm greatest dimension is unchanged. Spleen: Spleen shows calcified granulomatous change. Normal size. Adrenal glands: Normal. No mass. Kidneys and ureters: Bilateral renal cysts are likely benign. No hydronephrosis. Stomach and bowel: Colonic diverticula noted. No evident pericolic inflammatory change. No findings of abnormal bowel distention. Appendix: No evidence of appendicitis. Intraperitoneal space: Unremarkable. No free air. No significant fluid collection. Vasculature: Vascular calcifications are noted. No abdominal aortic aneurysm. Lymph nodes: Unremarkable. No enlarged lymph nodes. Urinary bladder: Unremarkable as visualized. Reproductive: Hysterectomy. Bones/joints: Marked chronic compression of T12 vertebral body. No acute bony findings. Soft tissues: Small fatty umbilical hernia. CT/CT abdomen pelvis w con* [id number] IMPRESSION: No acute findings. Stable cystic or mucinous lesion at pancreatic tail. Chronic marked compression of T12. Additional details as above. COMMENTS: Consistent with the [employer]'s Incidental Findings Committee white paper (J Am Lesly Radiol 2018): Any incidental renal lesion less than 1 cm or classified as too small to characterize, or any incidental cystic renal lesion characterized as simple-appearing, is likely benign. No follow-up imaging is recommended for these lesions per consensus recommendations based on imaging criteria.
[2022-10-14] MEDS: sodium chloride 0.9% 1,000 ML 999 ML IV (19:19)
[2022-10-14] MEDS: diphenhydrAMINE 50 mg/mL SDV 1mL 25 MG IVP (19:26)
[2022-10-14] MEDS: hydrocortisone 100 mg/2 mL SDV IVP (19:26)
[2022-10-14 19:37] LABS: Creatine Phosphokinase 98 U/L (26-192); Lipase 48 U/L (13-60); Thyroid Stimulating Hormone 1.55 uIU/mL (0.27-4.20)
[2022-10-14] MEDS: iohexol 350 mg/mL 500 mL Btl (per mL) IV (19:40)
[2022-10-14 19:59] VITALS: BP 166/84; PULSE 61; RESP 20; O2SAT 95
[2022-10-14 20:52] LABS: Basophils % 0.3 %; Hematocrit 35.3 % (37.0-47.0); Hemoglobin 11.2 g/dL (11.5-15.3); Lymphocytes # 1.2 10^3/uL (0.8-4.8); Lymphocytes % 16.2 %; Mean Corpuscular HGB Conc 31.7 g/dL (30.0-36.0); Mean Corpuscular Hemoglobin 29.8 pg (28.0-34.0); Mean Corpuscular Volume 93.9 fl (81-99); Mean Platelet Volume 11.1 fL (7.4-10.4); Monocytes # 0.8 10^3/uL (0.2-0.9); Monocytes % 11.6 %; Neutrophils # 5.06 10^3/uL (1.8-7.7); Neutrophils % 71.5 %; Nucleated Red Blood Cells % 0 %; Platelet Count 221 10^3/cmm (130-400); Red Blood Count 3.76 10^6/uL (4.1-5.3); Red Cell Distribution Width 13.2 % (12.1-15.1); White Blood Count 7.1 10^3/uL (4.0-10.0)
[2022-10-14 22:19] VITALS: BP 144/94; PULSE 66; RESP 16; O2SAT 96
[2022-10-14 23:10] VITALS: BP 140/90; PULSE 84; RESP 16; O2SAT 95
--- NOTE | 2022-10-14 23:43 | ED_ITS ---
HPI - General Adult General: Chief complaint: General Medical Stated complaint: physician sent, dehydration, nausea, weakness Time Seen by Provider: 10/14/22 18:16 History of Present Illness: 77-year-old female presenting with generalized weakness, and leg shakiness. Her legs gave out from under her yesterday at the pharmacy parking lot, and she fell, striking her head. She also complains of abdominal bloating, decreased appetite, epigastric pain after eating, and probable dehydration. Associated symptoms: Reports confusion (intermittent), headache(s) (after fall) and nausea; Deny chest pain, dyspnea, rash or vomiting Review of Systems Const: Denies: fever(s) Eyes: Denies: change in vision ENMT: Denies: throat pain Card: Denies: chest pain Resp: Denies: dyspnea, productive cough or non-productive cough GI: Reports: abdominal pain and nausea; Denies: vomiting or diarrhea Musc: Denies: neck pain Skin/Breast: Denies: rash Neuro: Reports: headache(s) (after fall) and confusion (intermittent) PFSH ED PFSH: Medical History (Updated 10/14/22 @ 22:39 by George Burroughs DO) Abdominal pain Chronic insomnia Compression fracture of T12 vertebra Constipation Diverticulosis Gastritis Seen on EGD. Hx of breast cancer Hypertension Insomnia Osteoporosis Psychiatric care Surgical History H/O hysterectomy for benign disease History of cholecystectomy History of colonoscopy (~09/2020) History of esophagogastroduodenoscopy (EGD) (~09/2020) History of mastectomy Family History Father Cancer Grandmother Diabetes Sister Cancer Mother Aneurysm Social History Smoking and tobacco status: never smoked Alcohol intake: never Substance/Drug Use: never Household members: spouse Marital status: Current occupational status: retired Female Reproductive History: Spontaneous abortions: No Physical Exam Const: COMMON NORMALS: no acute distress GENERAL APPEARANCE: cooperative and frail appearing; not ill appearing HENMT: COMMON NORMALS: normocephalic, atraumatic and Normal external nose p resent HEAD & SCALP: normocephalic and atraumatic FACE & SINUS: normal facial exam and face symmetric NOSE: Normal external nose present Eye: COMMON NORMALS: Equal, round and reactive pupils present and EOMs intact bilaterally PUPIL: Yes Equal, round and reactive pupils present Neck/C-Spine: GENERAL: Yes trachea midline Chest: CHEST: Yes Symmetrical chest wall rise Resp: COMMON NORMALS: normal respiratory effort, No retractions, No use of accessory muscles and clear to auscultation bilaterally AUSCULTATION: clear to auscultation bilaterally Cardio: COMMON NORMALS: regular rate and regular rhythm RATE: regular rate RHYTHM: regular rhythm GI: COMMON NORMALS: Normal to inspection, nondistended, normoactive bowel sounds present Extremity: NARRATIVE EXTREMITY EXAM: Significant weakness and tremor with hip flexion. Less so in the upper extremities. No significant pain with these maneuvers. No deformities. Neuro: INOCENTE COMA SCALE: document GCS findings Inocente coma scale eye opening: Spontaneous Inocente coma scale verbal response: Orientated [place] coma scale motor response: Obey commands Inocente coma scale total score: 15 SENSORY EXAM: Yes extremities (intact) Psych: COMMON NORMALS: speech normal SPEECH: Yes normal speech Skin: COMMON NORMALS: no rashes or lesions noted GENERAL SKIN EXAM: no rashes or lesions noted Course Vital Signs: Vital signs: Vital Signs Temperature 98.4 F 10/14/22 16:48 Pulse Rate 84 10/14/22 23:10 Respiratory Rate 16 10/14/22 23:10 Blood Pressure 140/90 10/14/22 23:10 Pulse Oximetry 95 10/14/22 23:10 Oxygen Delivery Me thod Room Air 10/14/22 22:19 [facility] - General Adult Medical Decision Making Vitals are essentially normal here. She is awake and alert. Hemoglobin is 11. White blood cell count is 7. Creatinine is 1.2. Head CT is negative. 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 Urinalysis is negative. She is given a liter bolus. She is walked in the ER, and is feeling improved. Less weakness. She still quite frail and weak. We have encouraged her to get a walker. Further outpatient work-up could include ankle-brachial indexes, physical therapy home eval, and potentially neurological referral, as she does have a significant tremor, Which can be associated with muscle weakness. TSH and CK are normal. Lab Data 10/14/22 17:54 10/14/22 17:54 Radiology Impressions Abdomen/Pelvis CT 10/14/22 19:06 IMPRESSION: No acute findings. Stable cystic or mucinous lesion at pancreatic tail. Chronic marked compression of T12. Additional details as above. COMMENTS: Consistent with the [employer]'s Incidental Findings Committee white paper (J Am Lesly Radiol 2018): Any incidental renal lesion less than 1 cm or classified as too small to characterize, or any incidental cystic renal lesion characterized as simple-appearing, is likely benign. No follow-up imaging is recommended for these lesions per consensus recommendations based on imaging criteria. Head CT 10/14/22 19:06 IMPRESSION: No acute intracranial abnormality. Laboratory Results WBC 7.1 10^3/uL (4.0-10.0) 10/14/22 17:54 RBC 3.76 10^6/uL (4.1-5.3) L 10/14/22 17:54 Hgb 11.2 g/dL (11.5-15.3) L 10/14/22 17:54 Hct 35.3 % (37.0-47.0) L 10/14/22 17:54 MCV 93.9 fl (81-99) 10/14/22 17:54 MCH 29.8 pg (28.0-34.0) 10/14/22 17:54 MCHC 31.7 g/dL (30.0-36.0) 10/14/22 17:54 RDW 13.2 % (12.1-15.1) 10/14/22 17:54 Plt Count 221 10^3/cmm (130-400) 10/14/22 17:54 MPV 11.1 fL (7.4-10.4) H 10/14/22 17:54 Neut % (Auto) 71.5 % 10/14/22 17:54 Lymph % (Auto) 16.2 % 10/14/22 17:54 Benson % (Auto) 11.6 % 10/14/22 17:54 Eos % (Auto) 0.0 % 10/14/22 17:54 Baso % (Auto) 0.3 % 10/14/22 17:54 Neut # (Auto) 5.06 10^3/uL (1.8-7.7) 10/14/22 17:54 Lymph # (Auto) 1.2 10^3/uL (0.8-4.8) 10/14/22 17:54 Benson # (Auto) 0.8 10^3/uL (0.2-0.9) 10/14/22 17:54 Eos # (Auto) 0.0 10^3/uL (0.0-0.8) 10/14/22 17:54 Baso # (Auto) 0.0 10^3/uL (0.0-0.1) 10/14/22 17:54 Nucleated RBC % (auto) 0 % 10/14/22 17:54 Nucleated RBCs # 0.0 /100WBC 10/14/22 17:54 Sodium 141 mmol/L (136-145) 10/14/22 17:54 Potassium 4.6 mmol/L (3.5-5.1) 10/14/22 17:54 Chloride 99 mmol/L (98-107) 10/14/22 17:54 Carbon Dioxide 33 mmol/L (22-29) H 10/14/22 17:54 Anion Gap 13.6 (5-19) 10/14/22 17:54 BUN 33 mg/dL (8-23) H 10/14/22 17:54 Creatinine 1.2 mg/dL (0.5-0.9) H 10/14/22 17:54 GFR Calculation Not Reportable 10/14/22 17:54 Glucose 104 mg/dL (65-115) 10/14/22 17:54 Calculated Osmolality 300 mOsm/kg (285-295) H 10/14/22 17:54 Calcium 9.8 mg/dL (8.5-10.5) 10/14/22 17:54 Total Bilirubin 0.2 mg/dL (0.15-1.2) 10/14/22 17:54 AST 19 U/L (0-32) 10/14/22 17:54 ALT 18 U/L (0-33) 10/14/22 17:54 Alkaline Phosphatase 54 U/L (35-105) 10/14/22 17:54 Creatine Kinase 98 U/L (26-192) 10/14/22 17:54 Total Protein 6.9 g/dL (6.6-8.7) 10/14/22 17:54 Albumin 4.2 g/dL (3.5-5.2) 10/14/22 17:54 Globulin 2.7 g/dL (1.3-4.6) 10/14/22 17:54 Lipase 48 U/L (13-60) 10/14/22 17:54 TSH 1.55 uIU/mL (0.27-4.20) 10/14/22 17:54 Urine Color Dark yellow (Yellow) 10/14/22 17:38 Urine Appearance Clear (CLEAR) 10/14/22 17:38 Urine pH 7 (5-7) 10/14/22 17:38 Ur Specific [place] 1.010 (1.005-1.030) 10/14/22 17:38 Urine Protein Neg (Negative) 10/14/22 17:38 Urine Glucose (UA) Norm (Normal) 10/14/22 17:38 Urine Ketones Negative (Negative) 10/14/22 17:38 Urine Blood Neg (Negative) 10/14/22 17:38 Urine Nitrate Negative (Negative) 10/14/22 17:38 Urine Bilirubin Neg (Negative) 10/14/22 17:38 Urine Urobilinogen Norm mg/dL (Negative) 10/14/22 17:38 Ur Leukocyte Esterase Negative (Negative) 10/14/22 17:38 Discharge Plan Discharge Patient Disposition: Home Clinical Impression: Weakness of both lower limbs Condition: Stable Prescriptions: No Action magnesium hydroxide [Milk of Magnesia] 400 mg/5 mL suspension 5 ml PO .at bedtime Qty: 355 5RF ergocalciferol (vitamin D2) [Vitamin D2] 50,000 unit capsule 50,000 unit PO .COMPLEX Rx Instructions: 50,000 units PO once tablet every 7 days; djcgbrhycnca-Co-yuje-minerals Tablet 1 tab PO ONCE cyanocobalamin (vitamin B-12) 1,000 mcg capsule 1,000 mcg PO ONCE calcium carb and citrat-mag ox 200 mg calcium- 50 mg tablet 1 tab PO ONCE vitamin E (dl, acetate) 450 mg (1,000 unit) capsule See Rx Instructions PO ONCE Rx Instructions: 100 mg PO once; sennosides-docusate sodium 8.6-50 mg tablet 1 tab-cap PO DAILY 30 Days Qty: 30 2RF ondansetron HCl 4 mg tablet 4 mg PO BID PRN (Reason: nausea and vomiting) 30 Days Qty: 60 5RF ibuprofen 400 mg tablet 400 mg PO Q8H PRN (Reason: pain) Qty: 60 0RF diclofenac sodium [Voltaren Arthritis Pain] 1 % gel 4 g topical QID Qty: 100 0RF Rx Instructions: apply to affected areas bupropion HCl 150 mg tablet sustained-release 12 hr 150 mg PO BID 90 Days Qty: 180 1RF trazodone 50 mg tablet 50 mg PO .at bedtime 90 Days Qty: 90 1RF polyethylene glycol 3350 [Miralax] 17 gram powder in packet 17 g PO DAILY 30 Days Qty: 30 2RF Rx Instructions: mix with 8 oz water or juice memantine [Namenda XR] 7 mg capsule,sprinkle,ER 24hr 7 mg PO DAILY Qty: 30 1RF venlafaxine 150 mg capsule,extended release 24hr 150 mg PO QAM Qty: 30 1RF alum-mag hydroxide-simeth [Maalox Maximum Strength] 400-400-40 mg/5 mL suspension 30 ml PO Q6H PRN (Reason: indigestion) Qty: 30 0RF donepezil 10 mg tablet See Rx Instructions .ROUTE .COMPLEX Qty: 90 0RF Dose Instruction: Take 1 tablet by mouth once daily for 90 days Rx Instructions: Take 1 tablet by mouth once daily for 90 days pantoprazole 40 mg tablet,delayed release (DR/EC) See Rx Instructions .ROUTE .COMPLEX Qty: 180 0RF Dose Instruction: Take 1 tablet by mouth twice daily for 90 days Rx Instructions: Take 1 tablet by mouth twice daily for 90 days hydroxyzine HCl 25 mg tablet See Rx Instructions .ROUTE .COMPLEX Qty: 30 0RF Dose Instruction: TAKE 1 TABLET BY MOUTH EVERY DAY AT BEDTIME NEEDED FOR INSOMNIA/ANXIETY Rx Instructions: TAKE 1 TABLET BY MOUTH EVERY DAY AT BEDTIME NEEDED FOR INSOMNIA/ANXIETY Discharge Orders: Discharge ED (Routine); Ordered 10/14/22 Ordered By: George Burroughs Referrals: Sneha Mendoza MD [Primary Care Provider] - 4-7 days Patient Instructions: Weakness (ED) Activity Restrictions/Additional Instructions: Return for any problems. Follow-up with your doctor next week. Orders have been written for home therapy evaluation. You should hear from them by midweek. Coding Level of Care Code ED Heel Buffer for Chg Dick
--- NOTE | 2022-10-16 09:45 | DCPLANNER ---
household manager had message to schedule in home PT eval for patient and a follow up appointment with Dr. Mendoza. Patient has a follow up appointment scheduled with Dr. Mendoza for 10.17.22, disease case manager rn called the clinic and let the clinic know that the ER physician wanted a in home PT eval and asked if patients primary care physician could order this to be done at clinic when patient is seen at her visit. household manager was told that it was added to patients notes for the visit tomorrow and they would discuss this with patient.
== END 2022-10-14 23:00 | disposition home or self-care (01) ==
PROVIDERS: Family Medicine; Emergency Provider Emergency Medicine; PCP Family Medicine
DX: M62.81 Muscle weakness (generalized) (principal)
CPT/HCPCS: 36415; 70450; 74177; 80048; 80053; 81003; 82550; 83690; 84443; 85025; 96374; 96375; 99285; J1200; J1720; J7030; Q9967

== ENCOUNTER → 2022-10-24 15:26 | Outpatient (BNVA) | payer MEDICARE, SELFPAY | PROVIDERS: Visit Provider Surgery | DX: R14.0 Abdominal distension (gaseous) (principal); K21.9 Gastro-esophageal reflux disease without esophagitis; Z12.11 Encounter for screening for malignant neoplasm of colon | CPT/HCPCS: 99203; 99214 ==

== ENCOUNTER 2022-10-26 10:14 | Outpatient (CLI) | payer MEDICARE, SELFPAY ==
--- NOTE | 2022-10-26 10:30 | USCV_ITS ---
Celestina San Age: 77 Gender: F : 1945 Exam Date: 10/26/2022 10:29 Ordering Phys: Sneha Mendoza MD Technologist: Alfonso Michael Exam Location[place] [facility] [place]: pad RIGHT LEFT Brachial 118.00 mmHg Brachial 123.00 mmHg Pressure (mmHg) Waveform Pressure (mmHg) Waveform 136.00 SCHOOL DIRECTOR 123.00 144.00 DPA 137.00 1.20 Ankle/Brachial Index 1.10 102.00 Pre-Exercise Toe Pressure 105.00 0.86 Pre-Exercise Toe/Brachial Index 0.89 FINDINGS Resting CINDY 1.2 on the right side and 1.1 on the left side Resting TBI of 0.86 on the right side and 0.89 on the left CONCLUSIONS Normal resting ABIs and TBIs bilaterally, suggesting no significant arterial obstruction Dr Ravin Azar MD [facility] (Electronically Signed) Final Date: 31 October 2022 08:38 S
== END 2022-10-26 10:15 | disposition home or self-care (01) ==
PROVIDERS: PCP Family Medicine; Visit Provider Family Medicine
DX: I10 Essential (primary) hypertension (principal); M79.604 Pain in right leg; M79.605 Pain in left leg; R29.898 Other symptoms and signs involving the musculoskeletal system
CPT/HCPCS: 93922

== ENCOUNTER → 2022-11-01 09:36 | Outpatient (BNVA) | payer MEDICARE, SELFPAY | PROVIDERS: PCP Family Medicine; Referring Provider Family Medicine; Visit Provider Psychiatry & Neurology Neurology | DX: G30.9 Alzheimer's disease, unspecified (principal); F02.80 Dementia in other diseases classified elsewhere, unspecified severity, without behavioral disturbance, psychotic disturbance, mood disturbance, and anxiety; F41.1 Generalized anxiety disorder | CPT/HCPCS: 99203 ==

== ENCOUNTER 2022-11-16 06:00 | Outpatient (RCR) | payer MEDICARE, SELFPAY | END 2022-11-25 23:59 | disposition home or self-care (01) | LOC: MPT 06:00 | PROVIDERS: PCP Family Medicine; Visit Provider Family Medicine | DX: R26.81 Unsteadiness on feet (principal); R29.6 Repeated falls | CPT/HCPCS: 97110; 97162 ==

== ENCOUNTER → 2022-11-23 09:34 | Outpatient (BNVA) | payer MEDICARE, SELFPAY | PROVIDERS: PCP Family Medicine; Referring Provider Family Medicine; Visit Provider Internal Medicine | DX: R06.02 Shortness of breath (principal); R29.6 Repeated falls; R29.898 Other symptoms and signs involving the musculoskeletal system; I47.1 Supraventricular tachycardia; R00.1 Bradycardia, unspecified | CPT/HCPCS: 93270 ==

== ENCOUNTER 2022-11-26 06:00 | Outpatient (RCR) | payer MEDICARE, SELFPAY | END 2022-12-26 23:59 | disposition home or self-care (01) | LOC: MPT 06:00 | PROVIDERS: PCP Family Medicine; Visit Provider Family Medicine | DX: R29.898 Other symptoms and signs involving the musculoskeletal system (principal); S22.080D Wedge compression fracture of T11-T12 vertebra, subsequent encounter for fracture with routine healing; Z74.09 Other reduced mobility; Z78.9 Other specified health status; R29.6 Repeated falls; X58.XXXD Exposure to other specified factors, subsequent encounter | CPT/HCPCS: 97110; 97112; 97116 ==

== ENCOUNTER 2022-12-15 08:41 | Day surgery (SDC) | payer MEDICARE, SELFPAY ==
[2022-12-15 09:06] VITALS: BP 156/74; PULSE 61; RESP 16; TEMP 36.3; O2SAT 98; BMI 20.1
[2022-12-15] MEDS: sodium chloride 0.9% 1,000 ML 30 ML IV (09:15)
--- NOTE | 2022-12-15 09:46 | ANES.PREANE2 ---
Pre-Anesthetic Assessment Height/Weight: Height 1.57 m Weight 49.895 kg Temp Pulse Resp BP Pulse Ox O2 Del Method 97.4 F L 61 16 156/74 98 Room Air 12/15/22 09:06 12/15/22 09:06 12/15/22 09:06 12/15/22 09:06 12/15/22 09:06 12/15/22 09:06 Operation Date: 12/15/22 09:45 Proposed Procedures p : [id number] egd [id number] colon R14.0,K21.9,Z12.11(Not Applicable) - DO jonel Mac Colonoscopy(Not Applicable) - Nolan Reardon DO Familial anesthetic complications: NOne Was Beta Dulce Maria taken within 24 hours: N/A Was Clonidine taken within 24 hours: N/A Last intake: Intake Last Liquid Date 12/14/22 Last Liquid Time 23:30 Last Solid Date 12/14/22 Last Solid Time 07:30 Social No alcohol and No tobacco Exam alert, oriented x 3, clear to auscultation bilaterally and regular rate & rhythm Airway Mallampati: Class II Dentition: false CV/HEM Hypertension cardiac event monitor showing some mild bradycardia and 1 asymptomatic run SVT, no further cardiac workup required per discussion with Dr. Zelaya GI hx gastroparesis, denies active heartburn, nausea, or feeling of fullness Anesthetic Plan ASA status: 3 Anesthesia: MAC Risk of > 500 ml blood loss (7ml/kg in children): No Medications/Allergies Home Medications Medication Instructions Recorded Confirmed Last Taken Type calcium 1 tab PO DAILY 03/04/19 12/15/22 12/14/22 History carbonate,citrate-magnesium oxide 200 mg calcium-50 mg tablet cyanocobalamin (vitamin B-12) 1,000 mcg PO DAILY 03/04/19 12/15/22 12/14/22 History 1,000 mcg capsule ergocalciferol (vitamin D2) 1,250 50,000 unit PO .COMPLEX 03/04/19 12/15/22 12/14/22 History mcg (50,000 unit) capsule (Vitamin D2) pxbkzeweersv-Au-eguy-minerals 1 tab PO ONCE 03/04/19 12/15/22 12/14/22 History diclofenac sodium 1 % topical gel 4 g topical QID #100 grams 11/30/21 12/15/22 Unknown Rx (Voltaren Arthritis Pain) ibuprofen 400 mg tablet 400 mg PO Q8H PRN pain #60 tabs 11/30/21 12/15/22 12/12/22 Rx ondansetron HCl 4 mg tablet 4 mg PO BID PRN nausea and 01/03/22 12/15/22 Unknown Rx vomiting 30 days #60 tabs sennosides 8.6 mg-docusate sodium 1 tab-cap PO DAILY constipation 30 01/03/22 12/15/22 Unknown Rx 50 mg tablet days #30 tabs bupropion HCl 150 mg tablet,12 hr 150 mg PO BID 90 days #180 ea 04/04/22 12/15/22 12/14/22 Rx sustained-release alprazolam 0.25 mg tablet (Xanax) 0.25 mg PO DAILY #60 tabs 11/01/22 12/15/22 12/14/22 Rx venlafaxine 150 mg 150 mg PO QAM #30 caps 11/02/22 12/15/22 12/14/22 Rx capsule,extended release 24 hr PreserVision AREDS-2 1 tab PO DAILY 12/13/22 12/15/22 12/14/22 History donepezil 10 mg tablet 10 mg PO DAILY 12/13/22 12/15/22 12/14/22 History memantine 7 mg capsule 7 mg PO DAILY 12/13/22 12/15/22 12/14/22 History sprinkle,extended release 24hr (Namenda XR) pantoprazole 40 mg tablet,delayed 40 mg PO BID 12/13/22 12/15/22 12/14/22 History release polyethylene glycol 3350 17 gram 17 g PO DAILY PRN Constipation 12/13/22 12/15/22 Unknown History oral powder packet (Miralax) Allergies Allergy/AdvReac Type Severity Reaction Status Date / Time Iodine and Iodide Containing Allergy rash Verified 12/15/22 09:05 Produc Current Medications Generic Name Dose Route Start Last Admin Trade Name Freq PRN Reason Stop Dose Admin Sodium Chloride 1,000 mls @ 30 mls/hr 12/15/22 08:45 12/15/22 09:15 Sodium Chloride 0.9% IV 12/16/22 08:44 30 mls/hr .Q24H DRAKE Administration PFSH Anesthesia Medical History Abdominal pain Chronic insomnia Compression fracture of T12 vertebra Constipation Diverticulosis Gastritis Seen on EGD. Hx of breast cancer Hypertension Insomnia Osteoporosis Psychiatric care Surgical History H/O hysterectomy for benign disease History of cholecystectomy History of colonoscopy (~09/2020) History of esophagogastroduodenoscopy (EGD) (~09/2020) History of mastectomy Family History Father Cancer Grandmother Diabetes Sister Cancer Mother Aneurysm Social History Smoking and tobacco/nicotine status: former use of tobacco/nicotine Quit status (tobacco/nicotine): has quit using Second hand smoke exposure: No Alcohol intake: never Substance/Drug Use: never Household members: spouse Marital status: Current occupational status: retired Female Reproductive History Spontaneous abortions: No Data Anesthesia Cardiac Studies: Cardiac Event Monitor 11/23/22
--- NOTE | 2022-12-15 10:16 | PM.HP ---
Providers/Chief Complaint Primary Care Provider: Sneha Mendoza MD Chief Complaint: R14.0, K21.9, Z12.11 History of Present Illness Celestina San is a 77 year old female Review of Systems General: Reports: 10 or more systems reviewed and unremarkable except in HPI and below Medications/Allergies Home Medications Medication Instructions Recorded Confirmed Last Taken Type calcium 1 tab PO DAILY 03/04/19 12/15/22 12/14/22 History carbonate,citrate-magnesium oxide 200 mg calcium-50 mg tablet cyanocobalamin (vitamin B-12) 1,000 mcg PO DAILY 03/04/19 12/15/22 12/14/22 History 1,000 mcg capsule ergocalciferol (vitamin D2) 1,250 50,000 unit PO .COMPLEX 03/04/19 12/15/22 12/14/22 History mcg (50,000 unit) capsule (Vitamin D2) fmioepxsijmn-Xt-jlpc-minerals 1 tab PO ONCE 03/04/19 12/15/22 12/14/22 History diclofenac sodium 1 % topical gel 4 g topical QID #100 grams 11/30/21 12/15/22 Unknown Rx (Voltaren Arthritis Pain) ibuprofen 400 mg tablet 400 mg PO Q8H PRN pain #60 tabs 11/30/21 12/15/22 12/12/22 Rx ondansetron HCl 4 mg tablet 4 mg PO BID PRN nausea and 01/03/22 12/15/22 Unknown Rx vomiting 30 days #60 tabs sennosides 8.6 mg-docusate sodium 1 tab-cap PO DAILY constipation 30 01/03/22 12/15/22 Unknown Rx 50 mg tablet days #30 tabs bupropion HCl 150 mg tablet,12 hr 150 mg PO BID 90 days #180 ea 04/04/22 12/15/22 12/14/22 Rx sustained-release alprazolam 0.25 mg tablet (Xanax) 0.25 mg PO DAILY #60 tabs 11/01/22 12/15/22 12/14/22 Rx venlafaxine 150 mg 150 mg PO QAM #30 caps 11/02/22 12/15/22 12/14/22 Rx capsule,extended release 24 hr PreserVision AREDS-2 1 tab PO DAILY 12/13/22 12/15/22 12/14/22 History donepezil 10 mg tablet 10 mg PO DAILY 12/13/22 12/15/22 12/14/22 History memantine 7 mg capsule 7 mg PO DAILY 12/13/22 12/15/22 12/14/22 History sprinkle,extended release 24hr (Namenda XR) pantoprazole 40 mg tablet,delayed 40 mg PO BID 12/13/22 12/15/22 12/14/22 History release polyethylene glycol 3350 17 gram 17 g PO DAILY PRN Constipation 12/13/22 12/15/22 Unknown History oral powder packet (Miralax) Allergies Allergy/AdvReac Type Severity Reaction Status Date / Time Iodine and Iodide Containing Allergy rash Verified 12/15/22 09:05 Produc PFSH Acute PFSH: Medical History Abdominal pain Chronic insomnia Compression fracture of T12 vertebra Constipation Diverticulosis Gastritis Seen on EGD. Hx of breast cancer Hypertension Insomnia Osteoporosis Psychiatric care Surgical History H/O hysterectomy for benign disease History of cholecystectomy History of colonoscopy (~09/2020) History of esophagogastroduodenoscopy (EGD) (~09/2020) History of mastectomy Family History Father Cancer Grandmother Diabetes Sister Cancer Mother Aneurysm Social History Smoking and tobacco/nicotine status: former use of tobacco/nicotine Quit status (tobacco/nicotine): has quit using Second hand smoke exposure: No Alcohol intake: never Substance/Drug Use: never Household members: spouse Marital status: Current occupational status: retired Female Reproductive History: Spontaneous abortions: No Vitals/I&O/Wt Last Vital Signs Temp 97.4 F L 12/15/22 09:06 Pulse 61 12/15/22 09:06 Resp 16 12/15/22 09:06 BP 156/74 12/15/22 09:06 Pulse Ox 98 12/15/22 09:06 O2 Del Method Room Air 12/15/22 09:06 Weight last 48 hrs Weight 110 lb A&P Assessment and plan (1) Colon cancer screening: (2) GERD (gastroesophageal reflux disease): (3) Bloating: Plan EGD and colonoscopy Attestations Medical Necessity Statement*: Home Coding Level of Care Code Acute Code for Chg Fwd Diagnoses Colon cancer screening Z12.11 GERD (gastroesophageal reflux disease) K21.9 Bloating R14.0
[2022-12-15 10:35] VITALS: BP 133/50; PULSE 67; RESP 12; TEMP 36.5; O2SAT 98
--- NOTE | 2022-12-15 10:45 | ANE.PACU2 ---
Inpatient post-anesthesia follow up: Airway intact: Yes Vital signs: Temperature 97.7 F Pulse Rate 64 Respiratory Rate 16 Blood Pressure 137/49 Pulse Oximetry 99 Oxygen Delivery Me thod Room Air Oxygen Flow Rate Fraction of Inspir ed Oxygen Hydration adequate: Yes Nausea and vomiting: No Pain level: 1 Mental status: Baseline
[2022-12-15 10:51] VITALS: BP 137/49; PULSE 64; RESP 16; O2SAT 99
== END 2022-12-15 11:27 | disposition home or self-care (01) ==
PROVIDERS: PCP Family Medicine; Visit Provider Surgery
PROC: 0DJ08ZZ Inspection of Upper Intestinal Tract, Via Natural or Artificial Opening Endoscopic (ICD-10-PCS; CPT 43235; principal; 2022-12-15 09:45)
PROC: 0DJD8ZZ Inspection of Lower Intestinal Tract, Via Natural or Artificial Opening Endoscopic (ICD-10-PCS; CPT 45378; 2022-12-15 09:45)
DX: Z12.11 Encounter for screening for malignant neoplasm of colon (principal); R14.0 Abdominal distension (gaseous); K29.50 Unspecified chronic gastritis without bleeding; K21.9 Gastro-esophageal reflux disease without esophagitis; K57.30 Diverticulosis of large intestine without perforation or abscess without bleeding; K44.9 Diaphragmatic hernia without obstruction or gangrene; I10 Essential (primary) hypertension; Z85.3 Personal history of malignant neoplasm of breast; M81.0 Age-related osteoporosis without current pathological fracture; Z87.891 Personal history of nicotine dependence
CPT/HCPCS: 43239; 88305; 88342; G0121; J2704; J7030

== ENCOUNTER → 2022-12-21 12:33 | Outpatient (BNVA) | payer MEDICARE, SELFPAY | PROVIDERS: PCP Family Medicine; Visit Provider Registered Nurse | DX: Z79.899 Other long term (current) drug therapy (principal); F32.9 Major depressive disorder, single episode, unspecified | CPT/HCPCS: 80053; 82306; 82607; 82746; 83735; 85025 ==

== ENCOUNTER 2022-12-27 06:00 | Outpatient (RCR) | payer MEDICARE, SELFPAY | END 2023-01-25 23:59 | disposition home or self-care (01) | LOC: MPT 06:00 | PROVIDERS: PCP Family Medicine; Visit Provider Family Medicine | DX: R26.81 Unsteadiness on feet (principal); R29.6 Repeated falls | CPT/HCPCS: 97110; 97112; 97116 ==

== ENCOUNTER 2023-01-01 14:28 | Outpatient (CLI) | payer MEDICARE, SELFPAY ==
--- NOTE | 2023-01-01 15:15 | MR_ITS ---
WS: [id number] MRA HEAD TECHNIQUE: Axial 3-D TOF images obtained with axial images and axial, sagittal, and coronal 2-D refor matted images. CLINICAL INFORMATION: R41.3 - Other amnesia COMPARISON: None. FINDINGS: Distal vertebrals are patent. Basilar artery is patent. Normal vascularity to the TECHNICAL SUPPORT ASSOCIATE territory bilat erally. Persistent RIGHT TECHNICAL SUPPORT ASSOCIATE. Both ICAs are patent at the skull base. 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 Tiny aneurysm in this location measuring 2 mm. Normal vascularity to the GERALD and MCA territories bilatera lly. No evidence of proximal flow-limiting stenosis IMPRESSION: 1. 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 2. Persistent RIGHT TECHNICAL SUPPORT ASSOCIATE. 3. No evidence of proximal flow-limiting intracranial stenosis 4. No other suspicious findings.
--- NOTE | 2023-01-01 15:30 | MR_ITS ---
WS: [id number] MRI HEAD WITHOUT CONTRAST TECHNIQUE: Sagittal T1, T2 axial, T2 axial FLAIR, axial and coronal T1 images, axial susceptibility w eighted imaging, axial diffusion weighted images, and coronal T2 images were obtained. CLINICAL INFORMATION: R41.3 - Other amnesia COMPARISON: CT 10/14/2022 FINDINGS: No evidence of restricted diffusion to suggest acute ischemia. Ventricular system and basal cisterns are patent. Mild supratentorial small vessel changes. Mild small vessel changes in the kurtis. Moderate parenchymal volume loss worse in the frontal lobes. Normal posterior fossa. Normal vascular flow voi ds at the skull base. No extra-axial fluid collections. No mass or mass effect. No hemosiderin on radha ceptibility-weighted images. Normal optic chiasm and pituitary infundibulum. Moderate to advanced symmetric atrophy temporal lobes and hippocampal formations. IMPRESSION: 1. No evidence of restricted diffusion to suggest acute ischemia. 2. Mild small vessel changes. Moderate parenchymal volume loss worse in the frontal lobes. 3. Moderate to advanced symmetric atrophy temporal lobes and hippocampal formations. 4. No hemosiderin on susceptibly weighted images.
== END 2023-01-01 14:29 | disposition home or self-care (01) ==
PROVIDERS: PCP Family Medicine; Visit Provider Psychiatry & Neurology Neurology
DX: R41.3 Other amnesia (principal); I72.0 Aneurysm of carotid artery; Q28.1 Other malformations of precerebral vessels
CPT/HCPCS: 70544; 70551

== ENCOUNTER 2023-01-26 06:00 | Outpatient (RCR) | payer MEDICARE, SELFPAY | END 2023-02-05 23:59 | disposition home or self-care (01) | LOC: MPT 06:00 | PROVIDERS: PCP Family Medicine; Visit Provider Family Medicine | DX: R26.81 Unsteadiness on feet (principal) | CPT/HCPCS: 97110; 97112 ==

== ENCOUNTER 2023-02-15 18:51 | Emergency (ER) | payer MEDICARE, SELFPAY ==
[2023-02-15 18:54] VITALS: BP 146/77; PULSE 67; RESP 18; TEMP 36.7; O2SAT 97
--- NOTE | 2023-02-15 19:07 | CTR_ITS ---
PROCEDURE INFORMATION: Exam: CT Head Without Contrast Exam date and time: 02/15/2023 7:14 PM Age: 77 years old Clinical indication: Injury or trauma; Fall; Blunt trauma (contusions or hematomas); Additional info: Fall head trauma, n/v TECHNIQUE: Imaging protocol: Computed tomography of the head without contrast. Radiation optimization: All CT scans at this facility use at least one of these dose optimization techniques: automated exposure control; mA and/or kV adjustment per patient size (includes targeted exams where dose is matched to clinical indication); or iterative reconstruction. REPORTING DATA: Count of CT and Cardiac NM exams in prior 12 months: This patient has received 2 known CTs and 0 known cardiac nuclear medicine studies in the 12 months prior to the current study. COMPARISON: MR head wo con* [id number] 01/01/2023 4:30 PM RADIATION DOSE METRICS: Total DLP (mGy-cm): 1031 FINDINGS: Brain: Atrophic or involutional change for age indicates volume loss. Mild periventricular and subcortical deep white matter low attenuation bilaterally suggesting chronic small-vessel disease change. Findings are unchanged with prior exam. No intracranial hemorrhage or hematoma is seen. No mass effect or shift of midline structures. No findings of territorial or large vessel ischemic infarct. No significant change with prior exam. Cerebral ventricles: Mild ventricular prominence with atrophy, without significant ventriculomegaly. Paranasal sinuses: Visualized sinuses are unremarkable. No fluid levels. Mastoid air cells: Visualized mastoid air cells are well aerated. Bones/joints: Bone windows of the skull show no acute abnormality. Soft tissues: Unremarkable. CT/CT head wo con* [id number] IMPRESSION: Stable appearance with previous exam 10/14/2022, without acute intracranial abnormality.
--- NOTE | 2023-02-15 19:10 | XRR_ITS ---
PROCEDURE INFORMATION: Exam: XR Abdomen Exam date and time: 02/15/2023 7:43 PM Age: 77 years old Clinical indication: Abdominal pain; Additional info: Abd pain constipation TECHNIQUE: Imaging protocol: Radiologic exam of the abdomen. Views: Frontal supine view of the abdomen. 1 View. COMPARISON: CT abdomen pelvis w con* [id number] 10/14/2022 7:37 PM FINDINGS: Lungs: No consolidation or effusion is seen within the visualized lungs. Gastrointestinal tract: Nonspecific bowel gas pattern without bowel dilatation. Moderate stool volume in the colon. Intraperitoneal space: Surgical clips right upper quadrant suggest prior cholecystectomy. No indication of free air. Bones/joints: Visualized osseous structures show no acute abnormality. Other findings: No abnormal calcifications. Psoas margins appear distinct. XR/XR abdomen 1V* [id number] IMPRESSION: Nonspecific nonobstructive bowel gas pattern with moderate stool volume in the colon.
[2023-02-15 19:33] VITALS: BP 147/74; PULSE 65; RESP 16; O2SAT 100
[2023-02-15 19:52] VITALS: BP 147/74; PULSE 68; RESP 16; O2SAT 93
[2023-02-15 19:52] LABS: Basophils % 0.3 %; Hematocrit 35.2 % (36-47); Lymphocytes # 1.3 10^3/uL (0.8-4.8); Lymphocytes % 18.1 %; Mean Corpuscular HGB Conc 32.1 g/dL (30-55); Mean Corpuscular Hemoglobin 29.2 pg (27-33); Mean Platelet Volume 10.6 fL (7.4-10.4); Monocytes # 0.9 10^3/uL (0.2-0.9); Monocytes % 12.9 %; Neutrophils # 4.72 10^3/uL (1.8-7.7); Neutrophils % 68.4 %; Nucleated Red Blood Cells % 0 %; Platelet Count 183 10^3/cmm (157-399); Red Blood Count 3.87 10^6/uL (3.85-5.65); Red Cell Distribution Width 13.7 % (12.1-15.1)
[2023-02-15 20:16] LABS: Alanine Aminotransferase 19 U/L (0-33); Albumin Level 4.2 g/dL (3.5-5.2); Alkaline Phosphatase 56 U/L (35-105); Anion Gap 14.4 (5-19); Aspartate Amino Transferase 26 U/L (0-32); Blood Urea Nitrogen 24 mg/dL (8-23); Calcium 9.2 mg/dL (8.5-10.5); Carbon Dioxide 29 mmol/L (22-29); Chloride 98 mmol/L (98-107); Globulin 2.8 g/dL (1.3-4.6); Glucose 92 mg/dL (65-115); Lipase 40 U/L (13-60); Magnesium 2.2 mg/dL (1.7-2.3); Osmolality Calculated 288 mOsm/kg (285-295); Potassium 4.4 mmol/L (3.5-5.1); Sodium 137 mmol/L (136-145); Total Bilirubin 0.4 mg/dL (0.15-1.2)
[2023-02-15] MEDS: lidocaine 2% viscous 15 ML, aluminum-mag hydrox-simethicon 30 ML, sucralfate oral liq 1 GM PO (20:17)
--- NOTE | 2023-02-15 20:18 | ED_ITS ---
HPI - Abdominal Pain 2 General: Chief Complaint: Abdominal Pain Stated Complaint: Fell\Abd Pain\N\ Time Seen by Provider: 02/15/23 19:06 History of Present Illness: Patient presents to the ER with upper abdominal epigastric type pain that is good in the morning until she starts eating and then it hurts until she goes to bed at night. Patient says this been going on for the several months she was given a medicine that did work but she is no longer taking it she is on for sure what the medicine is. Denies any chest pain shortness of breath Patient also had a fall approximately 2 weeks ago where she fell and hit the back of her head. She did not lose consciousness., Review of Systems 2 General: Reports: 10 or more systems reviewed and unremarkable except in HPI and below PFSH ED 2 PFSH: Medical History Insomnia Psychiatric care Diverticulosis Abdominal pain Constipation Gastritis Seen on EGD. Osteoporosis Chronic insomnia Compression fracture of T12 vertebra Hx of breast cancer Hypertension Surgical History History of esophagogastroduodenoscopy (EGD) (~09/2020) History of colonoscopy (~09/2020) History of mastectomy History of cholecystectomy H/O hysterectomy for benign disease Family History Father Cancer Grandmother Diabetes Sister Cancer Mother Aneurysm Social History Smoking and tobacco/nicotine status: former use of tobacco/nicotine Quit status (tobacco/nicotine): has quit using Second hand smoke exposure: No Alcohol intake: never Substance/Drug Use: never Household members: spouse Marital status: Current occupational status: retired Female Reproductive History: Spontaneous abortions: No Physical Exam 2 Const: COMMON NORMALS: no acute distress, average body habitus, patient oriented x3, no limitations, healthy appearing, alert and well nourished HENMT: COMMON NORMALS: normocephalic, atraumatic, hearing grossly normal bilaterally, external ears normal, Normal external nose present, moist oral mucous membranes and oropharynx normal HEAD & SCALP: normocephalic and atraumatic NOSE: Normal external nose present EXTERNAL EAR: Yes external ears normal Neck/C-Spine: COMMON NORMALS: full ROM, no lymphadenopathy, supple, no meningeal signs, no JVD and Thyroid normal THYROID: Thyroid normal Chest: COMMONS NORMALS: normal inspection of the chest and normal palpation of entire chest wall Resp: COMMON NORMALS: normal respiratory effort, No retractions, No use of accessory muscles and clear to auscultation bilaterally AUSCULTATION: clear to auscultation bilaterally Cardio: COMMON NORMALS: no JVD, regular rate, regular rhythm, S1 normal heart sound present, S2 normal heart sound present, No gallops present (Cardio), No clicks present (Cardio), No murmurs present (Cardio) and No rub (Cardio) R ATE: regular rate RHYTHM: regular rhythm HEART SOUNDS: S1 normal heart sound present and S2 normal heart sound present GI: COMMON NORMALS: Normal to inspection, nondistended, normoactive bowel sounds present, Soft to palpation, No hepatosplenomegaly present and no masses; negative for non-tender (Mild tenderness with palpation over epigastric area) PALPATION: Yes Soft to palpation and Yes No hepatosplenomegaly present Neuro: COMMON NORMALS: patient oriented x3 SENSORIUM/ORIENTATION: Yes alert MENINGEAL SIGNS: Yes no meningeal signs Course 2 Vital Signs: Vital signs: Vital Signs Temperature 98.0 F 02/15/23 18:54 Pulse Rate 70 02/15/23 21:25 Respiratory Rate 16 02/15/23 21:25 Blood Pressure 144/68 02/15/23 21:25 Pulse Oximetry 96 02/15/23 21:25 Oxygen Delivery Me thod Room Air 02/15/23 18:54 MDM - Abdominal Pain Medical Decision Making Patient had lab work done as well as a head CT and abdominal x-ray only showed moderate stool otherwise was negative. Patient is given GI cocktail which helped her pain in the epigastric area. This is thought to be gastritis and patient should continue her Protonix consistently. Patient be discharged home to follow-up with her PCP on an as-needed basis. Lab Data 02/15/23 19:38 02/15/23 19:38 Labs/Radiology: Radiology Impressions Head CT 02/15/23 19:07 IMPRESSION: Stable appearance with previous exam 10/14/2022, without acute intracranial abnormality. Abdomen X-Ray 02/15/23 19:10 IMPRESSION: Nonspecific nonobstructive bowel gas pattern with moderate stool volume in the colon. Laboratory Results WBC 6.90 10^3/uL (3.29-11.43) 02/15/23 19:38 RBC 3.87 10^6/uL (3.85-5.65) 02/15/23 19:38 Hgb 11.30 g/dL (11.27-16.99) 02/15/23 19:38 Hct 35.2 % (36-47) L 02/15/23 19:38 MCV 91.0 fl (85-98) 02/15/23 19:38 MCH 29.2 pg (27-33) 02/15/23 19:38 MCHC 32.1 g/dL (30-55) 02/15/23 19:38 RDW 13.7 % (12.1-15.1) 02/15/23 19:38 Plt Count 183 10^3/cmm (157-399) 02/15/23 19:38 MPV 10.6 fL (7.4-10.4) H 02/15/23 19:38 Neut % (Auto) 68.4 % 02/15/23 19:38 Lymph % (Auto) 18.1 % 02/15/23 19:38 [place] % (Auto) 12.9 % 02/15/23 19:38 Eos % (Auto) 0.0 % 02/15/23 19:38 Baso % (Auto) 0.3 % 02/15/23 19:38 Neut # (Auto) 4.72 10^3/uL (1.8-7.7) 02/15/23 19:38 Lymph # (Auto) 1.3 10^3/uL (0.8-4.8) 02/15/23 19:38 [place] # (Auto) 0.9 10^3/uL (0.2-0.9) 02/15/23 19:38 Eos # (Auto) 0.0 10^3/uL (0.0-0.8) 02/15/23 19:38 Baso # (Auto) 0.0 10^3/uL (0.0-0.1) 02/15/23 19:38 Nucleated RBC % (auto) 0 % 02/15/23 19:38 Nucleated RBCs # 0.0 /100WBC 02/15/23 19:38 PT 13.50 SECONDS (12.1-14.9) 02/15/23 19:38 INR 1.00 (0.8-1.2) 02/15/23 19:38 Sodium 137 mmol/L (136-145) 02/15/23 19:38 Potassium 4.4 mmol/L (3.5-5.1) 02/15/23 19:38 Chloride 98 mmol/L (98-107) 02/15/23 19:38 Carbon Dioxide 29 mmol/L (22-29) 02/15/23 19:38 Anion Gap 14.4 (5-19) 02/15/23 19:38 BUN 24 mg/dL (8-23) H 02/15/23 19:38 Creatinine 1.0 mg/dL (0.5-0.9) H 02/15/23 19:38 GFR Calculation Not Reportable 02/15/23 19:38 Glucose 92 mg/dL (65-115) 02/15/23 19:38 Calculated Osmolality 288 mOsm/kg (285-295) 02/15/23 19:38 Calcium 9.2 mg/dL (8.5-10.5) 02/15/23 19:38 Magnesium 2.2 mg/dL (1.7-2.3) 02/15/23 19:38 Total Bilirubin 0.4 mg/dL (0.15-1.2) 02/15/23 19:38 AST 26 U/L (0-32) 02/15/23 19:38 ALT 19 U/L (0-33) 02/15/23 19:38 Alkaline Phosphatase 56 U/L (35-105) 02/15/23 19:38 Total Protein 7.0 g/dL (6.6-8.7) 02/15/23 19:38 Albumin 4.2 g/dL (3.5-5.2) 02/15/23 19:38 Globulin 2.8 g/dL (1.3-4.6) 02/15/23 19:38 Lipase 40 U/L (13-60) 02/15/23 19:38 All radiology interpretation(s) finalized by discharge Discharge Plan Discharge Patient Disposition: Home Clinical Impression: Gastritis Qualifiers: Gastritis type: superficial Chronicity: acute Gastritis bleeding: without bleeding Qualified Code(s): K29.00 - Acute gastritis without bleeding Fall Qualifiers: Encounter type: initial encounter Qualified Code(s): W19.XXXA - Unspecified fall, initial encounter Condition: Stable Prescriptions: No Action bbxyjpbdfpar-Jb-hwjx-minerals Tablet 1 tab PO ONCE cyanocobalamin (vitamin B-12) 1,000 mcg capsule 1,000 mcg PO DAILY calcium carb and citrat-mag ox 200 mg calcium- 50 mg tablet 1 tab PO DAILY donepezil 10 mg tablet 10 mg PO DAILY 90 Days Qty: 90 1RF Rx Instructions: Take 1 tablet by mouth once daily for 90 days alprazolam [Xanax] 0.25 mg tablet 0.25 mg PO DAILY Qty: 60 2RF Rx Instructions: 1-2 at bedtime bupropion HCl 150 mg tablet sustained-release 12 hr 150 mg PO QAM 90 Days Qty: 90 1RF venlafaxine 150 mg capsule,extended release 24hr 150 mg PO QAM Qty: 30 3RF sennosides-docusate sodium 8.6-50 mg tablet 1 tab-cap PO DAILY 30 Days Qty: 30 2RF ibuprofen 400 mg tablet 400 mg PO Q8H PRN (Reason: pain) Qty: 60 0RF Hold Instructions: Resume on 12/17/22. diclofenac sodium [Voltaren Arthritis Pain] 1 % gel 4 g topical QID Qty: 100 0RF Rx Instructions: apply to affected areas pantoprazole 40 mg tablet,delayed release (DR/EC) See Rx Instructions .ROUTE .COMPLEX Qty: 180 0RF Dose Instruction: Take 1 tablet by mouth twice daily Rx Instructions: Take 1 tablet by mouth twice daily memantine [Namenda XR] 7 mg capsule,sprinkle,ER 24hr 7 mg PO DAILY 30 Days Qty: 30 3RF Rx Instructions: Take 1 capsule by mouth once daily ondansetron HCl 4 mg tablet 4 mg PO BID PRN (Reason: nausea and vomiting) 30 Days Qty: 60 0RF PreserVision AREDS-2 1 tab PO DAILY polyethylene glycol 3350 [Miralax] 17 gram powder in packet 17 g PO DAILY PRN (Reason: Constipation) Rx Instructions: mix with 8 oz water or juice Discharge Orders: Discharge ED (Routine); Ordered 02/15/23 Ordered By: Ruben Sandoval Referrals: Reji,Sneha, MD [Primary Care Provider] - 1 week Patient Instructions: Gastritis (ED), Diet for Stomach Ulcers and Gastritis (ED) Activity Restrictions/Additional Instructions: Please start taking your Protonix/pantoprazole 40 mg daily consistently. Has this will help your stomach heal. Please follow-up with your family practice physician in the next 7 to 10 days for further evaluation and treatment as needed. Coding Level of Care Code ED Data Collection Associate for Bernabe Jennings
[2023-02-15 21:25] VITALS: BP 144/68; PULSE 70; RESP 16; O2SAT 96
== END 2023-02-15 21:37 | disposition home or self-care (01) ==
PROVIDERS: Emergency Provider Emergency Medicine; PCP Family Medicine
DX: K29.00 Acute gastritis without bleeding (principal); I10 Essential (primary) hypertension; Z85.3 Personal history of malignant neoplasm of breast; Z87.891 Personal history of nicotine dependence
CPT/HCPCS: 36415; 70450; 74018; 80053; 83690; 83735; 85025; 85610; 99284

== ENCOUNTER 2023-02-25 13:33 | Emergency (ER) | payer MEDICARE, SELFPAY ==
[2023-02-25 13:41] VITALS: BP 152/64; PULSE 68; RESP 18; TEMP 36.6; O2SAT 99; BMI 23.8
--- NOTE | 2023-02-25 13:59 | CTR_ITS ---
PROCEDURE INFORMATION: Exam: CT Head Without Contrast Exam date and time: 02/25/2023 2:08 PM Age: 78 years old Clinical indication: Injury or trauma; Fall; Blunt trauma (contusions or hematomas); Without loss of consciousness; Additional info: Fall head pain TECHNIQUE: Imaging protocol: Computed tomography of the head without contrast. Radiation optimization: All CT scans at this facility use at least one of these dose optimization techniques: automated exposure control; mA and/or kV adjustment per patient size (includes targeted exams where dose is matched to clinical indication); or iterative reconstruction. REPORTING DATA: Count of CT and Cardiac NM exams in prior 12 months: This patient has received 3 known CTs and 0 known cardiac nuclear medicine studies in the 12 months prior to the current study. COMPARISON: CT head wo con* [id number] 02/15/2023 7:14 PM RADIATION DOSE METRICS: Total DLP (mGy-cm): 1010.08 FINDINGS: Brain: Moderate parenchymal volume loss. No midline shift. No mass, acute infarct, hemorrhage, or extra-axial fluid collection. Cerebral ventricles: No ventriculomegaly. Paranasal sinuses: Visualized sinuses are unremarkable. No fluid levels. Mastoid air cells: Visualized mastoid air cells are well aerated. Bones/joints: Unremarkable. No acute fracture. Soft tissues: Unremarkable. CT/CT head wo con* [id number] IMPRESSION: No acute intracranial abnormality.
--- NOTE | 2023-02-25 14:51 | ED_ITS ---
HPI - Fall General: Chief Complaint: Fall Stated Complaint: FALL Time Seen by Provider: 02/25/23 13:38 History of Present Illness: Patient fell backward at [employer] and hit a pew. Patient has pain to her bottom in the back of her head. Patient denies any blood thinner use at this time. Patient is unsure about loss of consciousness. Patient denies any neck pain. Patient says she did not get lightheaded dizzy or pass out she just went backwards. Review of Systems General: Reports: 10 or more systems reviewed and unremarkable except in HPI and below PFSH ED PFSH: Medical History Insomnia Psychiatric care Diverticulosis Abdominal pain Constipation Gastritis Seen on EGD. Osteoporosis Chronic insomnia Compression fracture of T12 vertebra Hx of breast cancer Hypertension Surgical History History of esophagogastroduodenoscopy (EGD) (~09/2020) History of colonoscopy (~09/2020) History of mastectomy History of cholecystectomy H/O hysterectomy for benign disease Family History Father Cancer Grandmother Diabetes Sister Cancer Mother Aneurysm Social History Smoking and tobacco/nicotine status: former use of tobacco/nicotine Quit status (tobacco/nicotine): has quit using Second hand smoke exposure: No Alcohol intake: never Substance/Drug Use: never Household members: spouse Marital status: Current occupational status: retired Female Reproductive History: Spontaneous abortions: No Physical Exam Const: COMMON NORMALS: no acute distress, average body habitus, patient oriented x3, no limitations, healthy appearing, alert and well nourished HENMT: COMMON NORMALS: normocephalic, hearing grossly normal bilaterally, external ears normal, Normal external nose present, moist oral mucous membranes and oropharynx normal; head/scalp not atraumatic (Tender to palpate right posterior occipital region no crepitus) HEAD & SCALP: normocephalic; not atraumatic (Tender to palpate right posterior occipital region no crepitus) NOSE: Normal external nose present EXTERNAL EAR: Yes external ears normal Neck/C-Spine: COMMON NORMALS: full ROM, no lymphadenopathy, supple, no meningeal signs, no JVD and Thyroid normal THYROID: Thyroid normal Chest: COMMONS NORMALS: normal inspection of the chest and normal palpation of entire chest wall Resp: COMMON NORMALS: normal respiratory effort, No retractions, No use of accessory muscles and clear to auscultation bilaterally AUSCULTATION: clear to auscultation bilaterally Cardio: COMMON NORMALS: no JVD, regular rate, regular rhythm, S1 normal heart sound present, S2 normal heart sound present, No gallops present (Cardio), No clicks present (Cardio), No murmurs present (Cardio) and No rub (Cardio) RATE: regular rate RHYTHM: regular rhythm HEART SOUNDS: S1 normal heart sound present and S2 normal heart sound present GI: COMMON NORMALS: Normal to inspection, nondistended, normoactive bowel sounds present, Soft to palpation, non-tender, No hepatosplenomegaly present and no masses PALPATION: Yes Soft to palpation and Yes No hepatosplenomegaly present Neuro: COMMON NORMALS: patient oriented x3 SENSORIUM/ORIENTATION: Yes alert MENINGEAL SIGNS: Yes no meningeal signs Course Vital Signs: Vital signs: Vital Signs Temperature 97.8 F 02/25/23 13:41 Pulse Rate 68 02/25/23 13:41 Respiratory Rate 18 02/25/23 13:41 Blood Pressure 152/64 02/25/23 13:41 Pulse Oximetry 99 02/25/23 13:41 Oxygen Delivery Me thod Room Air 02/25/23 13:41 MDM - Fall Medical Decision Making Patient fell backwards at [employer] and landed on her butt and hit her head. Patient complained of head pain patient is unsure of loss of consciousness. Head CT was obtained which showed no acute intracranial abnormality. Patient be discharged home to follow-up with her PCP for further evaluation and treatment. Differential Diagnosis Unlikely syncope, dislocation of shoulder region, fracture of wrist, compression fracture, concussion with loss of consciousness or concussion without loss of consciousness Medical Records I reviewed the patient's medical records. Lab Data I reviewed the patient's lab results. Radiology Impressions Head CT 02/25/23 13:59 IMPRESSION: No acute intracranial abnormality. All radiology interpretation(s) finalized by discharge Discharge Plan Discharge Patient Disposition: Home Clinical Impression: Fall, Contusion of head Condition: Stable Prescriptions: No Action mlmuznxrxvtd-Ch-yybx-minerals Tablet 1 tab PO ONCE cyanocobalamin (vitamin B-12) 1,000 mcg capsule 1,000 mcg PO DAILY calcium carb and citrat-mag ox 200 mg calcium- 50 mg tablet 1 tab PO DAILY donepezil 10 mg tablet 10 mg PO DAILY 90 Days Qty: 90 1RF Rx Instructions: Take 1 tablet by mouth once daily for 90 days alprazolam [Xanax] 0.25 mg tablet 0.25 mg PO DAILY Qty: 60 2RF Rx Instructions: 1-2 at bedtime bupropion HCl 150 mg tablet sustained-release 12 hr 150 mg PO QAM 90 Days Qty: 90 1RF venlafaxine 150 mg capsule,extended release 24hr 150 mg PO QAM Qty: 30 3RF sucralfate [Carafate] 1 gram tablet 1 g PO BID Qty: 30 0RF sennosides-docusate sodium 8.6-50 mg tablet 1 tab-cap PO DAILY 30 Days Qty: 30 2RF ibuprofen 400 mg tablet 400 mg PO Q8H PRN (Reason: pain) Qty: 60 0RF Hold Instructions: Resume on 12/17/22. diclofenac sodium [Voltaren Arthritis Pain] 1 % gel 4 g topical QID Qty: 100 0RF Rx Instructions: apply to affected areas pantoprazole 40 mg tablet,delayed release (DR/EC) 40 mg PO BID 90 Days Qty: 180 1RF memantine [Namenda XR] 7 mg capsule,sprinkle,ER 24hr 7 mg PO DAILY 30 Days Qty: 30 3RF Rx Instructions: Take 1 capsule by mouth once daily ondansetron HCl 4 mg tablet 4 mg PO BID PRN (Reason: nausea and vomiting) 30 Days Qty: 60 0RF PreserVision AREDS-2 1 tab PO DAILY polyethylene glycol 3350 [Miralax] 17 gram powder in packet 17 g PO DAILY PRN (Reason: Constipation) Rx Instructions: mix with 8 oz water or juice Discharge Orders: Discharge ED (Routine); Ordered 02/25/23 Ordered By: Ruben Sandoval Referrals: Sneha Mendoza MD [Primary Care Provider] - 1 week Patient Instructions: Scalp Contusion in Adults (ED) Activity Restrictions/Additional Instructions: Your head CT was negative for any acute abnormality. Please take Tylenol as needed for pain. If you develop any worsening pain, nausea vomiting, changes in vision or hearing please return to the ER immediately otherwise please follow-up with your family practice physician within the next 7 days for further evaluation and treatment as needed. Coding Level of Care Code ED Training Representative for Bernabe Jennings
== END 2023-02-25 15:40 | disposition home or self-care (01) ==
PROVIDERS: Emergency Provider Emergency Medicine; PCP Family Medicine
DX: S00.93XA Contusion of unspecified part of head, initial encounter (principal); Z87.891 Personal history of nicotine dependence; I10 Essential (primary) hypertension; Z85.3 Personal history of malignant neoplasm of breast; W18.39XA Other fall on same level, initial encounter; Y92.22 Religious institution as the place of occurrence of the external cause
CPT/HCPCS: 70450; 99284

== ENCOUNTER → 2023-05-10 08:45 | Outpatient (BNVA) | payer MEDICARE, SELFPAY | PROVIDERS: PCP Family Medicine; Visit Provider Psychiatry & Neurology Neurology | DX: G30.9 Alzheimer's disease, unspecified (principal); F02.80 Dementia in other diseases classified elsewhere, unspecified severity, without behavioral disturbance, psychotic disturbance, mood disturbance, and anxiety; F41.9 Anxiety disorder, unspecified | CPT/HCPCS: 99212 ==

== ENCOUNTER → 2023-08-02 09:22 | Outpatient (BNVA) | payer MEDICARE, SELFPAY | PROVIDERS: PCP Family Medicine; Referring Provider Nurse Practitioner; Visit Provider Family Medicine | DX: M81.0 Age-related osteoporosis without current pathological fracture (principal) | CPT/HCPCS: 82040; 82310 ==

== ENCOUNTER 2023-09-25 18:06 | Outpatient (CLI) | payer MEDICARE, SELFPAY ==
[2023-09-25 19:31] LABS: Reticulocyte % 1.1 % (0.5-2.0)
[2023-09-25 19:34] LABS: Basophils % 0.6 %; Hematocrit 36.5 % (36-47); Lymphocytes # 1.2 10^3/uL (0.8-4.8); Lymphocytes % 23.1 %; Mean Corpuscular HGB Conc 32.3 g/dL (30-55); Mean Corpuscular Hemoglobin 30.6 pg (27-33); Mean Corpuscular Volume 94.6 fl (85-98); Mean Platelet Volume 10.6 fL (7.4-10.4); Monocytes # 0.6 10^3/uL (0.2-0.9); Monocytes % 12.1 %; Neutrophils # 3.24 10^3/uL (1.8-7.7); Nucleated Red Blood Cells % 0 %; Platelet Count 211 10^3/cmm (157-399); Red Blood Count 3.86 10^6/uL (3.85-5.65); Red Cell Distribution Width 13.1 % (12.1-15.1); White Blood Count 5.06 10^3/uL (3.29-11.43)
[2023-09-25 19:57] LABS: Ferritin 57 ng/mL (15-150); Iron 66 ug/dL (37-145); Lactate Dehydrogenase 230 U/L (135-214); Percent Saturation 20.2 % (20-50); Total Iron Binding Capacity 326 mcg/dl; Transferrin 281 mg/dL (200-360); Unsaturated Iron Binding 260 ug/dL (112-347)
[2023-09-25 20:17] LABS: Alanine Aminotransferase 15 U/L (0-33); Albumin Level 4.4 g/dL (3.5-5.2); Alkaline Phosphatase 48 U/L (35-105); Anion Gap 15.3 (5-19); Aspartate Amino Transferase 20 U/L (0-32); Blood Urea Nitrogen 27 mg/dL (8-23); Calcium 9.4 mg/dL (8.5-10.5); Carbon Dioxide 28 mmol/L (22-29); Chloride 99 mmol/L (98-107); Glucose 84 mg/dL (65-115); Osmolality Calculated 290 mOsm/kg (285-295); Potassium 4.3 mmol/L (3.5-5.1); Sodium 138 mmol/L (136-145); Thyroid Stimulating Hormone 1.85 uIU/mL (0.27-4.20); Total Bilirubin 0.3 mg/dL (0.15-1.2); Total Protein 7.4 g/dL (6.6-8.7); Vitamin B12 1639 pg/mL (232-1245)
[2023-09-25 23:38] LABS: Immunoglobulin IGA 132 mg/dL (70-400); Immunoglobulin IGG 1005 mg/dL (700-1600); Immunoglobulin IGM 194 mg/dL (40-230)
[2023-09-27 11:44] LABS: PROTEIN, TOTAL 6.8 g/dL (6.1-8.1)
[2023-09-27 14:25] LABS: KAPPA LIGHT CHAIN, FREE, SERUM 26.7 mg/L (3.3-19.4); LAMBDA LIGHT CHAIN, FREE, SERU 24.3 mg/L (5.7-26.3)
[2023-09-27 16:04] LABS: ABNORMAL PROTEIN BAND 1 0.2 g/dL (NONE DETECTED); ALBUMIN 3.9 g/dL (3.8-4.8); ALPHA 1 GLOBULIN 0.4 g/dL (0.2-0.3); ALPHA 2 GLOBULIN 0.8 g/dL (0.5-0.9); BETA 1 GLOBULIN 0.5 g/dL (0.4-0.6); BETA 2 GLOBULIN 0.3 g/dL (0.2-0.5)
[2023-09-28 11:39] LABS: Beta-2-Microglobulin 3.06 mg/L (< OR = 2.51)
[2023-09-29 14:15] LABS: Vit D 1,25 (Oh)2, Total 32 pg/mL (18-72); Vit D2 1,25 (Oh)2 <8 pg/mL; Vit D3 1,25 (Oh)2 32 pg/mL
== END 2023-09-25 18:07 | disposition home or self-care (01) ==
PROVIDERS: PCP Family Medicine; Visit Provider Family Medicine
DX: G30.1 Alzheimer's disease with late onset; F02.80 Dementia in other diseases classified elsewhere, unspecified severity, without behavioral disturbance, psychotic disturbance, mood disturbance, and anxiety; R53.83 Other fatigue; E55.9 Vitamin D deficiency, unspecified; D64.9 Anemia, unspecified
CPT/HCPCS: 36415; 80053; 82232; 82607; 82652; 82728; 82784; 83010; 83540; 83550; 83615; 83883; 84155; 84165; 84443; 84466; 85025; 85045

== ENCOUNTER → 2023-12-05 13:30 | Outpatient (BNVA) | payer MEDICARE, SELFPAY | PROVIDERS: PCP Family Medicine; Visit Provider Psychiatry & Neurology Neurology | DX: G30.9 Alzheimer's disease, unspecified (principal); F02.80 Dementia in other diseases classified elsewhere, unspecified severity, without behavioral disturbance, psychotic disturbance, mood disturbance, and anxiety | CPT/HCPCS: 99212; 99213 ==

== ENCOUNTER → 2024-03-18 11:10 | Outpatient (BNVA) | payer MEDICARE, SELFPAY | PROVIDERS: PCP Family Medicine; Visit Provider Family Medicine | DX: J20.8 Acute bronchitis due to other specified organisms (principal); J98.8 Other specified respiratory disorders; B97.89 Other viral agents as the cause of diseases classified elsewhere | CPT/HCPCS: 87400; 87426 ==

== ENCOUNTER → 2024-04-03 10:45 | Outpatient (BNVA) | payer MEDICARE, SELFPAY | PROVIDERS: PCP Family Medicine; Visit Provider Nurse Practitioner | DX: R68.89 Other general symptoms and signs (principal) | CPT/HCPCS: 87400; 87426 ==

== ENCOUNTER → 2024-06-03 14:11 | Outpatient (BNVA) | payer MEDICARE, SELFPAY | PROVIDERS: PCP Family Medicine; Visit Provider Psychiatry & Neurology Neurology | DX: G30.9 Alzheimer's disease, unspecified (principal); F02.80 Dementia in other diseases classified elsewhere, unspecified severity, without behavioral disturbance, psychotic disturbance, mood disturbance, and anxiety | CPT/HCPCS: 80053; 85025; 99212 ==

== ENCOUNTER 2024-07-29 11:43 | Emergency (ER) | payer MEDICARE, SELFPAY ==
[2024-07-29 11:45] VITALS: BP 154/86; PULSE 65; RESP 16; TEMP 36.7; O2SAT 93; BMI 23.8
--- NOTE | 2024-07-29 11:57 | W.ED.HEATRA ---
HPI - Head Injury General: Chief complaint: Head Injury Stated complaint: Fall Time Seen by Provider: 07/29/24 11:51 Source: patient and family Mode of arrival: EMS Limitations: no limitations History of Present Illness: Patient is a very nice 79-year-old female who presents to ED today for evaluation of a head injury. Patient states she was outside gardening when she accidentally tripped over a concrete curb. She states she fell backwards and struck the back of her head. No LOC. Patient does states she felt a little woozy when she first got up but this has since subsided. Does not complain of a headache. She does arrive via EMS in a c-collar. She is not complaining of any neck or back pain. She has been ambulatory since the fall without any hip or lower extremity pain. She is not on anticoagulation. MD Complaint: head injury Onset (ago): hour(s) Arrival Conditions: C-spine immobilization present Mechanism of Injury: fall Place: home Loss of Consciousness: no Location of injury: occipital Severity: mild Radiation: none Other Injuries: none Associated symptoms: Reports no associated symptoms; Deny neck pain or syncope Related Data Home Medications ?Medication ?Instructions ?Recorded ?Confirmed calcium 200 mg (carbonate, 1 tab PO DAILY 03/04/19 07/29/24 citrate)-magnesium 50 mg (as oxide) tablet cyanocobalamin (vitamin B-12) 1,000 mcg PO DAILY 03/04/19 07/29/24 1,000 mcg capsule flqxyahqdihh-Fk-zojj-minerals 1 tab PO DAILY 03/04/19 07/29/24 polyethylene glycol 3350 17 gram 17 g PO DAILY PRN Constipation 12/13/22 07/29/24 oral powder packet (Miralax) ondansetron HCl 4 mg tablet 4 mg PO Q8H PRN Nausea 12/05/23 07/29/24 diclofenac sodium 1 % topical gel 4 g topical QID PRN Pain 07/29/24 07/29/24 (Voltaren Arthritis Pain) pantoprazole 40 mg tablet,delayed 40 mg PO BID 07/29/24 07/29/24 release vit C 250 mg-vit E 90 mg-zinc 40 1 tab PO BID 07/29/24 07/29/24 mg-copper 1 kh-forbcg-[id number] capsule (PreserVision AREDS-2) Previous Rx's ?Medication ?Instructions ?Recorded sennosides 8.6 mg-docusate sodium 1 tab-cap PO DAILY constipation 30 01/03/22 50 mg tablet days #30 tabs alprazolam 0.25 mg tablet 0.25 mg PO DAILY 30 days #30 tabs 03/24/24 bupropion HCl 150 mg tablet,12 hr 150 mg PO QAM 90 days #90 ea 04/14/24 sustained-release memantine 14 mg capsule 14 mg PO DAILY 90 days #90 ea 04/14/24 sprinkle,extended release 24hr venlafaxine 75 mg capsule,extended 75 mg PO QAM #30 caps 06/12/24 release 24 hr donepezil 10 mg tablet 10 mg PO DAILY 90 days #90 tabs 07/18/24 Allergies Allergy/AdvReac Type Severity Reaction Status Date / Time Iodine and Iodide Containing Allergy rash Verified 07/28/24 07:03 Produc Review of Systems Eyes: Denies: change in vision, blurry vision, photophobia, eye discharge, floaters or seeing flashes ENMT: Denies: throat pain, odynophagia, ear or mastoid pain, ear discharge, nasal discharge, epistaxis or sinus pain Card: Denies: chest pain, palpitations, lightheadedness, syncope or pre-syncope Resp: Denies: dyspnea or pain on inspiration GI: Denies: abdominal pain : Denies: flank pain or hematuria Musc: Denies: neck pain, back pain, extremity pain or joint pain Neuro: Denies: headache(s), numbness in extremities, weakness in extremities, sensory changes or dizziness PFSH ED PFSH: Medical History Insomnia Psychiatric care Diverticulosis Abdominal pain Constipation Gastritis Seen on EGD. Osteoporosis Chronic insomnia Compression fracture of T12 vertebra Hx of breast cancer Hypertension Surgical History History of esophagogastroduodenoscopy (EGD) (~09/2020) History of colonoscopy (~09/2020) History of mastectomy History of cholecystectomy H/O hysterectomy for benign disease Family History Father Cancer Grandmother Diabetes Sister Cancer Mother Aneurysm Social History Smoking and tobacco/nicotine status: former use of tobacco/nicotine Quit status (tobacco/nicotine): has quit using Second hand smoke exposure: No Alcohol intake: never Substance/Drug Use: never Household members: spouse Marital status: Current occupational status: retired Female Reproductive History: Spontaneous abortions: No Physical Exam Const: COMMON NORMALS: no acute distress, average body habitus, patient oriented x3, no limitations, healthy appearing, alert and well nourished GENERAL APPEARANCE: cooperative ORIENTATION/CONSCIOUSNESS: Yes awake, Yes oriented to person, Yes oriented to place and Yes oriented to time HENMT: COMMON NORMALS: normocephalic and TM's normal bilaterally HEAD & SCALP: normal to inspection, normocephalic, hematoma (posterior scalp) and scalp tenderness; no Coleman's sign, no laceration, no palpable skull fracture and no raccoon eyes FACE & SINUS: normal facial exam TYMPANIC MEMBRANE: TM's normal bilaterally MOUTH: other (no intraoral injuries noted) Eye: COMMON NORMALS: Equal, round and reactive pupils present and EOMs intact bilaterally GENERAL EYE: appearance normal, both eyes and all related structures and normal light reflex PUPIL: Yes Equal, round and reactive pupils present DIRECT OPHTHALMOSCOPY: Yes normal light reflex Neck/C-Spine: GENERAL: Yes normal visual inspection CERVICAL SPINE: No Cervical spine tenderness, No step off deformity and No Paracervical muscle tenderness OTHER: c-collar present by EMS; this was not removed for ROM testing Chest: COMMONS NORMALS: normal inspection of the chest and normal palpation of entire chest wall Resp: COMMON NORMALS: normal respiratory effort and clear to auscultation bilaterally AUSCULTATION: clear to auscultation bilaterally Cardio: COMMON NORMALS: regular rate and regular rhythm RATE: regular rate RHYTHM: regular rhythm GI: COMMON NORMALS: Normal to inspection, nondistended, normoactive bowel sounds present, Soft to palpation, non-tender, No hepatosplenomegaly present and no masses INSPECTION: Yes normal to inspection and No abdominal wall ecchymosis AUSCULTATION: Yes normoactive bowel sounds PALPATION: Yes Soft to palpation and Yes No hepatosplenomegaly present Back/Pelvis: COMMON NORMALS: thoracic and lumbar spine normal to inspection, no thoracic nor lumbar tenderness and thoraco-lumbar ROM normal Extremity: COMMON NORMALS: normal to inspection and full ROM GENERAL: Yes normal exam except as noted Neuro: INOCENTE COMA SCALE: document GCS findings Inocente coma scale eye opening: Spontaneous Inocente coma scale verbal response: Orientated Inocente coma scale motor response: Obey commands Inocente coma scale total score: 15 COMMON NORMALS: patient oriented x3, CN's II-XII intact bilaterally, moves all extremities, no focal motor deficits, no sensory deficits noted and gait normal SENSORIUM/ORIENTATION: Yes alert, Yes oriented to person, Yes oriented to place and Yes oriented to time SPEECH: speech normal GAIT: Yes Normal gait present Skin: COMMON NORMALS: no rashes or lesions noted GENERAL SKIN EXAM: no rashes or lesions noted TRAUMA: no lacerations or abrasions Course Vital Signs: Vital signs: Vital Signs Temperature 98.1 F 07/29/24 11:45 Pulse Rate 65 07/29/24 11:45 Respiratory Rate 16 07/29/24 11:45 Blood Pressure 154/86 07/29/24 11:45 Pulse Oximetry 93 07/29/24 11:45 Oxygen Delivery Me thod Room Air 07/29/24 11:45 MDM - Head Injury Medcial Decision Making CT head/cervical spine were unremarkable. Patient be allowed discharge with return precautions. Differential Diagnosis Likely concussion without loss of consciousness, epidural hematoma, closed head injury, subarachnoid hematoma, subdural hematoma and concussion with loss of consciousness Medical Records I reviewed the patient's medical records. Lab Data Radiology Impressions Cervical Spine CT 07/29/24 12:08 IMPRESSION: No evidence of acute fracture or dislocation. Head CT 07/29/24 12:08 IMPRESSION: 1. No evidence of intracranial hemorrhage or mass effect. 2. No acute intracranial findings. All radiology interpretation(s) finalized by discharge Discharge Plan Discharge Patient Disposition: Home Clinical Impression: Minor closed head injury Fall from slip, trip, or stumble Qualifiers: Encounter type: initial encounter Qualified Code(s): W01.0XXA - Fall on same level from slipping, tripping and stumbling without subsequent striking against object, initial encounter Scalp hematoma Qualifiers: Encounter type: initial encounter Qualified Code(s): S00.03XA - Contusion of scalp, initial encounter Condition: Stable Prescriptions: No Action ajjjyiwsocir-Vi-nmlc-minerals Tablet 1 tab PO DAILY cyanocobalamin (vitamin B-12) 1,000 mcg capsule 1,000 mcg PO DAILY calcium carb and citrat-mag ox 200 mg calcium- 50 mg tablet 1 tab PO DAILY ondansetron HCl 4 mg tablet 4 mg PO Q8H PRN (Reason: Nausea) sennosides-docusate sodium 8.6-50 mg tablet 1 tab-cap PO DAILY 30 Days Qty: 30 2RF alprazolam 0.25 mg tablet 0.25 mg PO DAILY 30 Days Qty: 30 5RF bupropion HCl 150 mg tablet sustained-release 12 hr 150 mg PO QAM 90 Days Qty: 90 1RF memantine 14 mg capsule,sprinkle,ER 24hr 14 mg PO DAILY 90 Days Qty: 90 0RF venlafaxine 75 mg capsule,extended release 24hr 75 mg PO QAM Qty: 30 3RF donepezil 10 mg tablet 10 mg PO DAILY 90 Days Qty: 90 1RF PreserVision AREDS-2 250-90-40-1 mg Capsule 1 tab PO BID pantoprazole 40 mg tablet,delayed release (DR/EC) 40 mg PO BID diclofenac sodium [Voltaren Arthritis Pain] 1 % gel 4 g topical QID PRN (Reason: Pain) Rx Instructions: apply to affected areas polyethylene glycol 3350 [Miralax] 17 gram powder in packet 17 g PO DAILY PRN (Reason: Constipation) Rx Instructions: mix with 8 oz water or juice Discharge Orders: Discharge ED (Routine); Ordered 07/29/24 Ordered By: Cathy Begum Referrals: Sneha Mendoza MD [Primary Care Provider, Family Practice] Patient Instructions: Head Injury (DC) Activity Restrictions/Additional Instructions: As we discussed, CT imaging of her head and cervical spine were unremarkable. She may seek medical re-evaluation for any further concerns she may have. Print Language: Occitan Coding Level of Care Code ED Test Engine Mechanic for Bernabe Jennings
--- NOTE | 2024-07-29 12:08 | CT_ITS ---
WS: [id number] CT HEAD TECHNIQUE: Noncontrast CT of the head obtained from the skullbase to the vertex. CLINICAL INFORMATION: trauma COMPARISON: 2022 DLP: 1272.[address] scans at [facility] use at least one of these dose optimization techniques: automated exposure control; mA and/or kV adjustment per patient size (includes targeted exams where dose is matched to clinical indication); or iterative reconstruction. FINDINGS: No evidence of intracranial hemorrhage or mass effect. Ventricular system and basal cisterns are patent. Mild small vessel changes with moderate parenchymal volume loss. No extra-axial fluid collections. No evidence of mass or mass effect. Vascular calcification Paranasal sinuses and mastoid air cells are well aerated. .Normal visualized soft tissues. CT/CT head wo con* [id number] IMPRESSION: 1. No evidence of intracranial hemorrhage or mass effect. 2. No acute intracranial findings.
--- NOTE | 2024-07-29 12:08 | CT_ITS ---
WS: [id number] CT CERVICAL TRAUMA TECHNIQUE: Noncontrast CT of the cervical spine with coronal and sagittal reformatted images. CLINICAL INFORMATION: trauma/fall COMPARISON: None. DLP: 1272.[address] scans at [facility] use at least one of these dose optimization techniques: automated exposure control; mA and/or kV adjustment per patient size (includes targeted exams where dose is matched to clinical indication); or iterative reconstruction. FINDINGS: Straightening of the normal cervical lordosis. Mild cervical curve. Moderate spondylitic changes. Anterolisthesis C5 on C6, C6 on C7 and C7 on T1. Disc space narrowing worse at C6-7. Normal craniocervical junction. Dens appears intact. Normal prevertebral soft tissues. Mastoids air cells are well aerated. CT/CT cervical spin wo con* [id number] IMPRESSION: No evidence of acute fracture or dislocation.
[2024-07-29 13:35] VITALS: BP 147/88; PULSE 69; O2SAT 98
== END 2024-07-29 13:39 | disposition home or self-care (01) ==
PROVIDERS: Absent Provider Psychiatry & Neurology Neurology; Emergency Provider Physician Assistant; PCP Family Medicine
DX: S09.8XXA Other specified injuries of head, initial encounter (principal); S00.03XA Contusion of scalp, initial encounter; W01.0XXA Fall on same level from slipping, tripping and stumbling without subsequent striking against object, initial encounter; Z87.891 Personal history of nicotine dependence; I10 Essential (primary) hypertension; Z85.3 Personal history of malignant neoplasm of breast
CPT/HCPCS: 70450; 72125; 99284

== ENCOUNTER 2024-09-02 12:15 | Oncology outpatient (recurring) (ONCR) | payer MEDICARE, SELFPAY ==
[2024-08-28 16:14] LABS: Hematocrit 36.3 % (36-47); Hemoglobin 11.90 g/dL (11.27-16.99); Mean Corpuscular HGB Conc 32.8 g/dL (30-55); Mean Corpuscular Hemoglobin 30.8 pg (27-33); Mean Corpuscular Volume 94.0 fl (85-98); Nucleated Red Blood Cells % 0 %; Platelet Count 216 10^3/cmm (157-399); Red Blood Count 3.86 10^6/uL (3.85-5.65); White Blood Count 6.08 10^3/uL (3.29-11.43)
[2024-08-28 16:32] LABS: Alanine Aminotransferase 16 U/L (0-33); Albumin Level 4.2 g/dL (3.5-5.2); Alkaline Phosphatase 63 U/L (35-105); Anion Gap 17.2 (5-19); Aspartate Amino Transferase 24 U/L (0-32); Blood Urea Nitrogen 24 mg/dL (8-23); Calcium 9.5 mg/dL (8.5-10.5); Carbon Dioxide 28 mmol/L (22-29); Chloride 98 mmol/L (98-107); Creatinine Clr Calc Pharmacy 31.7927; Globulin 3.4 g/dL (1.3-4.6); Glucose 99 mg/dL (65-115); Osmolality Calculated 292 mOsm/kg (285-295); Potassium 4.2 mmol/L (3.5-5.1); Sodium 139 mmol/L (136-145); Total Protein 7.6 g/dL (6.6-8.7); Uric Acid 4.3 mg/dL (2.4-5.7)
[2024-08-28 16:50] LABS: Ferritin 85 ng/mL (15-150); Iron 88 ug/dL (37-145); Total Iron Binding Capacity 307 mcg/dl; Unsaturated Iron Binding 219 ug/dL (112-347)
[2024-08-28 17:05] LABS: Vitamin B12 1938 pg/mL (232-1245)
[2024-08-29 05:10] LABS: PROTEIN, TOTAL 7.2 g/dL (6.1-8.1)
[2024-09-01 14:40] LABS: KAPPA LIGHT CHAIN, FREE, SERUM 29.1 mg/L (3.3-19.4); KAPPA/LAMBDA LIGHT CHAINS FREE 1.09 (0.26-1.65); LAMBDA LIGHT CHAIN, FREE, SERU 26.8 mg/L (5.7-26.3)
[2024-09-01 16:34] LABS: ALPHA 1 GLOBULIN 0.4 g/dL (0.2-0.3); ALPHA 2 GLOBULIN 0.9 g/dL (0.5-0.9); BETA 1 GLOBULIN 0.4 g/dL (0.4-0.6); BETA 2 GLOBULIN 0.4 g/dL (0.2-0.5)
[2024-09-02 14:04] LABS: Total Volume, Urine 1000 mL
[2024-09-03 12:57] LABS: Leukemia Profile (BBPL) See Report
== END 2024-09-25 23:59 | disposition home or self-care (01) ==
PROVIDERS: PCP Family Medicine; Visit Provider Internal Medicine
DX: Z53.9 Procedure and treatment not carried out, unspecified reason (principal); D47.2 Monoclonal gammopathy
CPT/HCPCS: 36415; 80053; 82607; 82728; 82784; 83010; 83540; 83550; 83615; 83883; 84155; 84156; 84165; 84550; 85025; 86334; 86335; 88184; 88185; 99204

== ENCOUNTER 2024-10-09 15:08 | Oncology outpatient (recurring) (ONCR) | payer MEDICARE, SELFPAY ==
[2024-10-09 15:34] LABS: Hematocrit 33.7 % (36-47); Hemoglobin 11.00 g/dL (11.27-16.99); Mean Corpuscular HGB Conc 32.6 g/dL (30-55); Mean Corpuscular Hemoglobin 30.5 pg (27-33); Mean Corpuscular Volume 93.4 fl (85-98); Nucleated Red Blood Cells % 0 %; Platelet Count 213 10^3/cmm (157-399); Red Blood Count 3.61 10^6/uL (3.85-5.65); White Blood Count 6.13 10^3/uL (3.29-11.43)
--- NOTE | 2024-10-09 15:46 | XR_ITS ---
WS: [id number] Bone survey, 10/09/2024 Clinical Data: monoclonal gammopathy Comparison: None. Findings: Lateral skull: No abnormalities. Lateral cervical spine: No abnormalities. AP and lateral views of the arms and humeri: Probable old fracture of the proximal right humerus, no metastatic lesions are seen. AP view of the thorax: There is a compression fracture of the T12 vertebral body. The remainder of the thoracic vertebral bodies and ribs are intact. AP and lateral views of the lumbar spine: There is a compression fracture of the T12 vertebral body with loss of almost all the vertebral body height. The lumbar vertebral bodies are normal. There are clips from a cholecystectomy. AP and lateral views of the thoracic spine: The T12 compression fracture shows almost total loss of vertebral body height. Bilateral rib detail: No rib abnormalities are seen. AP pelvis: No acute abnormalities are seen. Probable old left pubic symphysis fracture. AP and lateral views of both thighs and femurs: No abnormalities are seen XR/XR bone survey* [id number] Impression: T12 compression fracture with loss of almost all of the vertebral body height.
[2024-10-09 16:08] LABS: Alanine Aminotransferase 15 U/L (0-33); Albumin Level 4.0 g/dL (3.5-5.2); Alkaline Phosphatase 53 U/L (35-105); Anion Gap 14.4 (5-19); Aspartate Amino Transferase 20 U/L (0-32); Blood Urea Nitrogen 33 mg/dL (8-23); Calcium 9.2 mg/dL (8.5-10.5); Carbon Dioxide 29 mmol/L (22-29); Chloride 101 mmol/L (98-107); Creatinine Clr Calc Pharmacy 34.7646; Ferritin 62 ng/mL (15-150); Globulin 2.8 g/dL (1.3-4.6); Glucose 112 mg/dL (65-115); Iron 63 ug/dL (37-145); Osmolality Calculated 298 mOsm/kg (285-295); Potassium 4.4 mmol/L (3.5-5.1); Sodium 140 mmol/L (136-145); Total Iron Binding Capacity 282 mcg/dl; Total Protein 6.8 g/dL (6.6-8.7); Unsaturated Iron Binding 219 ug/dL (112-347); Uric Acid 4.5 mg/dL (2.4-5.7)
[2024-10-09 16:23] LABS: Vitamin B12 1551 pg/mL (232-1245)
[2024-10-10 13:34] LABS: KAPPA LIGHT CHAIN, FREE, SERUM 30.6 mg/L (3.3-19.4); KAPPA/LAMBDA LIGHT CHAINS FREE 1.16 (0.26-1.65); LAMBDA LIGHT CHAIN, FREE, SERU 26.4 mg/L (5.7-26.3)
== END 2024-10-26 23:59 | disposition home or self-care (01) ==
PROVIDERS: PCP Family Medicine; Visit Provider Internal Medicine
DX: M81.0 Age-related osteoporosis without current pathological fracture (principal); K29.00 Acute gastritis without bleeding; D47.2 Monoclonal gammopathy; D64.9 Anemia, unspecified; M48.54XA Collapsed vertebra, not elsewhere classified, thoracic region, initial encounter for fracture; M48.56XA Collapsed vertebra, not elsewhere classified, lumbar region, initial encounter for fracture; R93.7 Abnormal findings on diagnostic imaging of other parts of musculoskeletal system; Z90.49 Acquired absence of other specified parts of digestive tract; Z87.891 Personal history of nicotine dependence; Z79.899 Other long term (current) drug therapy
CPT/HCPCS: 36415; 77075; 80053; 82607; 82728; 83010; 83540; 83550; 83615; 83883; 84550; 85025; 86334; 99213

== ENCOUNTER → 2024-11-19 08:16 | Outpatient (BNVA) | payer MEDICARE, SELFPAY | PROVIDERS: PCP Family Medicine; Visit Provider Student in an Organized Health Care Education/Training Program | DX: M25.552 Pain in left hip (principal); M70.62 Trochanteric bursitis, left hip; M76.32 Iliotibial band syndrome, left leg | CPT/HCPCS: 20610; 73502; 99204; J3301; J3490; J9999 ==

== ENCOUNTER 2024-11-25 11:08 | Oncology outpatient (recurring) (ONCR) | payer MEDICARE, SELFPAY ==
[2024-11-25 11:51] LABS: Hematocrit 36.3 % (36-47); Hemoglobin 12.00 g/dL (11.27-16.99); Mean Corpuscular HGB Conc 33.1 g/dL (30-55); Mean Corpuscular Hemoglobin 31.6 pg (27-33); Mean Corpuscular Volume 95.5 fl (85-98); Nucleated Red Blood Cells % 0 %; Platelet Count 235 10^3/cmm (157-399); Red Blood Count 3.80 10^6/uL (3.85-5.65); White Blood Count 8.52 10^3/uL (3.29-11.43)
[2024-11-25 12:11] LABS: Alanine Aminotransferase 16 U/L (0-33); Albumin Level 4.3 g/dL (3.5-5.2); Alkaline Phosphatase 50 U/L (35-105); Anion Gap 13.0 (5-19); Aspartate Amino Transferase 17 U/L (0-32); Blood Urea Nitrogen 26 mg/dL (8-23); Calcium 9.5 mg/dL (8.5-10.5); Carbon Dioxide 29 mmol/L (22-29); Chloride 104 mmol/L (98-107); Creatinine Clr Calc Pharmacy 37.3265; Ferritin 62 ng/mL (15-150); Globulin 3.2 g/dL (1.3-4.6); Glucose 104 mg/dL (65-115); Iron 119 ug/dL (37-145); Osmolality Calculated 299 mOsm/kg (285-295); Potassium 4.0 mmol/L (3.5-5.1); Sodium 142 mmol/L (136-145); Total Iron Binding Capacity 317 mcg/dl; Total Protein 7.5 g/dL (6.6-8.7); Unsaturated Iron Binding 198 ug/dL (112-347); Uric Acid 3.9 mg/dL (2.4-5.7)
[2024-11-25 12:26] LABS: Vitamin B12 1522 pg/mL (232-1245)
[2024-11-25] MEDS: denosumab 60 mg SDV (Infusion Clinic Only) SUBCUT (13:33)
== END 2024-11-25 23:59 | disposition home or self-care (01) ==
PROVIDERS: PCP Family Medicine; Visit Provider Internal Medicine Medical Oncology
DX: D47.2 Monoclonal gammopathy (principal); M81.0 Age-related osteoporosis without current pathological fracture; Z87.891 Personal history of nicotine dependence; M48.54XA Collapsed vertebra, not elsewhere classified, thoracic region, initial encounter for fracture; Z79.899 Other long term (current) drug therapy; K29.00 Acute gastritis without bleeding
CPT/HCPCS: 36415; 80053; 82607; 82728; 82746; 83540; 83550; 84550; 85025; 96372; 99214; J0897

== ENCOUNTER 2024-12-25 10:59 | Outpatient (RCR) | payer MEDICARE, SELFPAY | END 2024-12-26 23:59 | disposition home or self-care (01) | LOC: MPT 10:59 | PROVIDERS: PCP Family Medicine; Visit Provider Physician Assistant | DX: M70.62 Trochanteric bursitis, left hip (principal) | CPT/HCPCS: 97110; 97112; 97162 ==

== ENCOUNTER 2025-01-19 11:31 | Outpatient (RCR) | payer MEDICARE, SELFPAY | END 2025-01-25 23:59 | disposition home or self-care (01) | LOC: MPT 11:31 | PROVIDERS: PCP Family Medicine; Visit Provider Physician Assistant | DX: M70.62 Trochanteric bursitis, left hip (principal) | CPT/HCPCS: 97110; 97112; 97530 ==

== ENCOUNTER 2025-02-23 10:36 | Outpatient (RCR) | payer MEDICARE, SELFPAY | END 2025-02-25 23:59 | disposition home or self-care (01) | LOC: MPT 10:36 | PROVIDERS: PCP Family Medicine; Visit Provider Physician Assistant | DX: M70.62 Trochanteric bursitis, left hip (principal) | CPT/HCPCS: 97110; 97112 ==